=== PATIENT | male | born 1965 | race Caucasian/White ===

== ENCOUNTER 2019-03-14 09:49 | Inpatient (IN) ==
[2019-03-14] MEDS ORDERED: methylPREDNISolone 125 MG/2 ML VIAL IVP ONE (09:55)
[2019-03-14] MEDS ORDERED: Ipratropium/Albuterol Neb 3 ML IH ONE (09:55)
--- NOTE | 2019-03-14 09:55 | Emergency Department Note ---
Disposition Clinical Impression: Lung cancer, Respiratory distress, Hypercalcemia, Malignant pleural effusion Disposition: Admitted As Inpatient Condition: Fair General Adult HPI - General Stated complaint: DIBam Time Seen by Provider: 03/14/19 09:50 - Related Data Home Medications Medication Instructions Recorded Confirmed Pravastatin Sodium [Pravachol] 40 mg PO DAILY 12/19/16 03/14/19 Ranitidine HCl [Heartburn Relief] 150 mg PO BID 12/19/16 03/14/19 OxyCODONE Immed Rel [Roxicodone 30 30 mg PO Q2H PRN 11/21/17 03/14/19 MG] Losartan Potassium [Cozaar] 50 mg PO QPM 12/11/17 03/14/19 Lactobacillus Acidophilus 1 tab PO TID 02/26/19 03/14/19 [Acidophilus] Morphine Sulfate [Arymo ER] 30 mg PO Q12H 02/26/19 03/14/19 predniSONE [PredniSONE] 10 mg PO DAILY 02/26/19 03/14/19 Previous Rx's Medication Instructions Recorded Budesonide/Formoterol 80/4.5 1 puff IH BID #1 hfa.aer.ad 12/12/18 [Symbicort 80/4.5] Dronabinol [Marinol] 10 mg PO BID 30 Days #60 capsule 01/30/19 Ipratropium/Albuterol Neb [Duoneb] 3 ml IH Q4HR PRN #42 vial.neb 02/20/19 Albuterol Sulfate [Ventolin Hfa] 2 puff IH Q6H PRN #1 aerosol 03/03/19 Allergies Allergy/AdvReac Type Severity Reaction Status Date / Time No Known Allergies Allergy Verified 03/14/19 10:56 Past Medical History - Past Medical History Medical history: Reports: cancer, GERD, hyperlipidemia, hypertension Surgical history: Reports: no surgical history Psychiatric history: Reports: no psych history - Social History Smoking Status: Former smoker Smokeless Tobacco Status: No Alcohol use: Reports: heavy Drug use: Reports: none Course Vital Signs Temperature 97.3 F L 03/14/19 09:57 Pulse Rate 138 03/14/19 09:57 Respiratory Rate 32 03/14/19 09:57 Blood Pressure 146/108 03/14/19 09:57 O2 Sat by Pulse Oximetry 98 03/14/19 09:57 Temperature 97.3 F L 03/14/19 18:50 Pulse Rate 107 03/14/19 18:50 Respiratory Rate 16 03/14/19 18:50 Blood Pressure 107/63 03/14/19 18:50 O2 Sat by Pulse Oximetry 98 03/14/19 18:50 Oxygen Delivery Oxygen Delivery Bipap Medical Decision Making - Lab Data Result diagrams: 03/14/19 10:15 03/14/19 10:15 Lab Results 03/14/19 03/14/19 03/14/19 Range/Units 10:15 10:15 10:15 WBC 11.6 H (4.3-11.1) K/mcL RBC 4.59 (4.19-5.50) M/mcL Hgb 12.8 L (12.9-16.9) g/dL Hct 41.0 (37.5-50.1) % MCV 89.3 (83.0-100.0) fL MCH 27.9 L (28.0-33.3) pg MCHC 31.2 L (31.6-35.5) g/dL RDW 13.5 (11.5-14.5) % Plt Count 349 (140-400) K/mcL MPV 9.8 (9.4-12.4) fL Immature Gran % 0.7 (0-4) % Seg Neutrophils % 84.4 % Lymphocytes % 4.1 % Monocytes % 10.4 % Eosinophils % 0.1 % Basophils % 0.3 % Neutrophils # 9.8 H (1.6-8.9) K/mcL Lymphocytes # 0.5 L (0.6-4.6) K/mcL Monocytes # 1.2 (0.0-1.3) K/mcL Eosinophils # 0.0 (0.0-0.6) K/mcL Basophils # 0.0 (0.0-0.2) K/mcL PT 15.8 H (9.4-12.1) Seconds INR 1.4 VBG pH (7.32-7.42) pH Units VBG pCO2 (41-51) mmHg VBG pO2 (25-50) mmHg VBG HCO3 (21-27) mEq/L Sodium 138 (136-145) mEq/L Potassium 4.4 (3.5-5.1) mEq/L Chloride 90 L (98-107) mEq/L Carbon Dioxide 37 H (23-29) mEq/L BUN 18 (6-20) mg/dL Creatinine 0.88 (0.70-1.30) mg/dL Est GFR ( Amer) > 60 (> 60) Est GFR (Non-Af Amer) > 60 (> 60) BUN/Creatinine Ratio 20 (6-26) Glucose 114 H (70-105) mg/dL Calculated Osmolality 289 (280-300) Lactic Acid (0.5-2.2) mmol/L Calcium 16.6 H* (8.6-10.3) mg/dL Total Bilirubin 0.5 (0.3-1.0) mg/dL Direct Bilirubin 0.0 (0.0-0.2) mg/dL Indirect Bilirubin 0.5 (0.0-1.2) mg/dL AST 15 (13-39) Units/L ALT 11 (7-52) Units/L Alkaline Phosphatase 244 H (34-104) Units/L Lactate Dehydrogenase 125 L (140-271) Units/L Troponin I 0.03 (< 0.04) ng/mL B-Natriuretic Peptide (Less than 100) pg/mL Serum Total Protein 8.2 (6.4-8.9) g/dL Albumin 4.0 (3.5-5.7) g/dL Globulin 4.2 H (2.4-3.5) g/dL Albumin/Globulin Ratio 1.0 L (1.1-2.2) Person Notif of Crit 03/14/19 03/14/19 03/14/19 Range/Units 10:15 10:15 10:32 WBC (4.3-11.1) K/mcL RBC (4.19-5.50) M/mcL Hgb (12.9-16.9) g/dL Hct (37.5-50.1) % MCV (83.0-100.0) fL MCH (28.0-33.3) pg MCHC (31.6-35.5) g/dL RDW (11.5-14.5) % Plt Count (140-400) K/mcL MPV (9.4-12.4) fL Immature Gran % (0-4) % Seg Neutrophils % % Lymphocytes % % Monocytes % % Eosinophils % % Basophils % % Neutrophils # (1.6-8.9) K/mcL Lymphocytes # (0.6-4.6) K/mcL Monocytes # (0.0-1.3) K/mcL Eosinophils # (0.0-0.6) K/mcL Basophils # (0.0-0.2) K/mcL PT (9.4-12.1) Seconds INR VBG pH 7.34 (7.32-7.42) pH Units VBG pCO2 72 H* (41-51) mmHg VBG pO2 32 (25-50) mmHg VBG HCO3 39 H (21-27) mEq/L Sodium (136-145) mEq/L Potassium (3.5-5.1) mEq/L Chloride (98-107) mEq/L Carbon Dioxide (23-29) mEq/L BUN (6-20) mg/dL Creatinine (0.70-1.30) mg/dL Est GFR ( Amer) (> 60) Est GFR (Non-Af Amer) (> 60) BUN/Creatinine Ratio (6-26) Glucose (70-105) mg/dL Calculated Osmolality (280-300) Lactic Acid 1.8 (0.5-2.2) mmol/L Calcium (8.6-10.3) mg/dL Total Bilirubin (0.3-1.0) mg/dL Direct Bilirubin (0.0-0.2) mg/dL Indirect Bilirubin (0.0-1.2) mg/dL AST (13-39) Units/L ALT (7-52) Units/L Alkaline Phosphatase (34-104) Units/L Lactate Dehydrogenase (140-271) Units/L Troponin I (< 0.04) ng/mL B-Natriuretic Peptide 127 H (Less than 100) pg/mL Serum Total Protein (6.4-8.9) g/dL Albumin (3.5-5.7) g/dL Globulin (2.4-3.5) g/dL Albumin/Globulin Ratio (1.1-2.2) Person Notif of Xavi ORTIZ SAMEERA 03/14/19 Range/Units 11:59 WBC (4.3-11.1) K/mcL RBC (4.19-5.50) M/mcL Hgb (12.9-16.9) g/dL Hct (37.5-50.1) % MCV (83.0-100.0) fL MCH (28.0-33.3) pg MCHC (31.6-35.5) g/dL RDW (11.5-14.5) % Plt Count (140-400) K/mcL MPV (9.4-12.4) fL Immature Gran % (0-4) % Seg Neutrophils % % Lymphocytes % % Monocytes % % Eosinophils % % Basophils % % Neutrophils # (1.6-8.9) K/mcL Lymphocytes # (0.6-4.6) K/mcL Monocytes # (0.0-1.3) K/mcL Eosinophils # (0.0-0.6) K/mcL Basophils # (0.0-0.2) K/mcL PT (9.4-12.1) Seconds INR VBG pH (7.32-7.42) pH Units VBG pCO2 (41-51) mmHg VBG pO2 (25-50) mmHg VBG HCO3 (21-27) mEq/L Sodium (136-145) mEq/L Potassium (3.5-5.1) mEq/L Chloride (98-107) mEq/L Carbon Dioxide (23-29) mEq/L BUN (6-20) mg/dL Creatinine (0.70-1.30) mg/dL Est GFR ( Amer) (> 60) Est GFR (Non-Af Amer) (> 60) BUN/Creatinine Ratio (6-26) Glucose (70-105) mg/dL Calculated Osmolality (280-300) Lactic Acid 1.3 (0.5-2.2) mmol/L Calcium (8.6-10.3) mg/dL Total Bilirubin (0.3-1.0) mg/dL Direct Bilirubin (0.0-0.2) mg/dL Indirect Bilirubin (0.0-1.2) mg/dL AST (13-39) Units/L ALT (7-52) Units/L Alkaline Phosphatase (34-104) Units/L Lactate Dehydrogenase (140-271) Units/L Troponin I (< 0.04) ng/mL B-Natriuretic Peptide (Less than 100) pg/mL Serum Total Protein (6.4-8.9) g/dL Albumin (3.5-5.7) g/dL Globulin (2.4-3.5) g/dL Albumin/Globulin Ratio (1.1-2.2) Person Notif of Crit Critical Care Time Critical Care Time: Yes Total Critical Care Time: 30 Attestation: The high probability of a clinically significant, sudden or life threatening deterioration of the [] system(s) required my full and direct attention, intervention and personal management. The aggregate critical care time was [] minutes. This time is in addition to time spent performing reported procedures but includes the following: [] Data Review and interpretation [] Patient assessment and monitoring of vital signs [] Documentation [] Medication orders and management Attestation Statement - Attestation Attestation: I reviewed the residents documentation and agree with the residents assessment and plan of care. I have personally had face to face time with the patient. (Brief History, Brief Exam, and MDM) I personally supervised and was present for the gregorio/critical portions of the following procedures completed by the resident: (add procedures performed here). [id number] time provided Patient arrives by EMS from home complaining of dyspnea. He has a history of active lung cancer. It is uncertain whether he is receiving chemotherapy. Patient has coarse audible breath sounds on exam with evidence of increased work of breathing. I attest to supervising the resident physician interpretation of the ECG
--- NOTE | 2019-03-14 10:00 | Emergency Department Note ---
Disposition Clinical Impression: Respiratory distress, Hypercalcemia, Malignant pleural effusion Lung cancer Qualifiers: Laterality: unspecified laterality Lung location: unspecified part of lung Qualified Code(s): C34.90 - Malignant neoplasm of unspecified part of unspecified bronchus or lung Disposition: Admitted As Inpatient Condition: Fair Referrals: Marilynn Carrillo MD [Primary Care Provider] - Forms: ED Satisfaction Letter General Adult HPI - General Chief complaint: ED Shortness of Breath/Dyspnea Stated complaint: DIBam Time Seen by Provider: 03/14/19 09:50 Source: patient, EMS Mode of arrival: EMS Limitations: no limitations Nursing Notes Reviewed: Yes Vital Signs Reviewed: Yes - History of Present Illness HPI Narrative: 53-year-old male with history of hypertension hyperlipidemia with metastatic non-small cell lung cancer currently undergoing chemotherapy and radiation presents for evaluation for respiratory distress. Patient unable to provide an accurate history given his current medical condition but does state that it has been going on for the past 3-4 days. Noting chest pain as well as cough. Denies any fevers. Denying any abdominal pain. EMS states that the patient presented from home. Patient is 4 L oxygen dependent at baseline. Patient also states he has a history of heart failure. - Related Data Home Medications Medication Instructions Recorded Confirmed Pravastatin Sodium [Pravachol] 40 mg PO DAILY 12/19/16 03/14/19 Ranitidine HCl [Heartburn Relief] 150 mg PO BID 12/19/16 03/14/19 OxyCODONE Immed Rel [Roxicodone 30 30 mg PO Q2H PRN 11/21/17 03/14/19 MG] Losartan Potassium [Cozaar] 50 mg PO QPM 12/11/17 03/14/19 Lactobacillus Acidophilus 1 tab PO TID 02/26/19 03/14/19 [Acidophilus] Morphine Sulfate [Arymo ER] 30 mg PO Q12H 02/26/19 03/14/19 predniSONE [PredniSONE] 10 mg PO DAILY 02/26/19 03/14/19 Previous Rx's Medication Instructions Recorded Budesonide/Formoterol 80/4.5 1 puff IH BID #1 hfa.aer.ad 12/12/18 [Symbicort 80/4.5] Dronabinol [Marinol] 10 mg PO BID 30 Days #60 capsule 01/30/19 Ipratropium/Albuterol Neb [Duoneb] 3 ml IH Q4HR PRN #42 vial.neb 02/20/19 Albuterol Sulfate [Ventolin Hfa] 2 puff IH Q6H PRN #1 aerosol 03/03/19 Allergies Allergy/AdvReac Type Severity Reaction Status Date / Time No Known Allergies Allergy Verified 03/14/19 10:56 All systems ED: reviewed and negative except as stated. Constitutional: Denies: fever Cardiovascular: Reports: chest pain Respiratory: Reports: cough, dyspnea Gastrointestinal: Denies: nausea, vomiting Past Medical History - Past Medical History Source: patient Medical history: Reports: cancer, GERD, hyperlipidemia, hypertension Surgical history: Reports: no surgical history Psychiatric history: Reports: no psych history - Social History Smoking Status: Former smoker Smokeless Tobacco Status: No Alcohol use: Reports: heavy Drug use: Reports: none Physical Exam - General Limitations: no limitations General appearance: alert, in distress - Head Head exam: atraumatic, normocephalic, normal inspection - Eye Eye exam: Present: normal appearance, PERRL, EOMI - ENT ENT exam: normal exam, mucous membranes moist - Neck Neck exam: Present: normal inspection - Chest Chest inspection: Present: normal inspection, symmetric chest wall rise, other (right upper chest port without surrounding erythema or crepitus.) - Respiratory Respiratory exam: Present: respiratory distress, accessory muscle use (Sitting up in bed), prolonged expiratory phase, other (Audible rhonchorous breath sounds in all lung lizarraga) - Cardiovascular Cardiovascular exam: Present: regular rate, normal rhythm. Absent: normal heart sounds - Abdominal Exam Abdominal exam: Present: soft, Non-Tender - Extremities Exam Extremities exam: Present: normal inspection. Absent: pedal edema - Back Exam Back exam: Present: normal inspection - Neurological Exam Neurological exam: Present: alert, oriented X3, CN II-XII intact - Skin Skin exam: Present: warm, dry, intact, normal color. Absent: rash Course Course Narrative: Patient presented for concerns of respiratory distress. Given the patient's current acute work of breathing the patient has difficulty providing much of a history. Patient is conversational dyspneic. Medially plate BiPAP. Patient also has rhonchorous breath sounds throughout. Review the record showed the patient is undergoing chemoradiation for metastatic non-small cell lung cancer. Patient will be continue respiratory support monitoring. Cultures lactate troponin EKG chest x-ray anticipated admission. - Reevaluation(s) Reevaluation #1: Patient is on 12/6 and appears to be tolerating BiPAP better. Time: 10:23 Reevaluation #2: Patient will be covered with broad-spectrum antibiotics given his increased work of breathing. Did increase the patient's BiPAP to 14/6 to increase his tidal volume. Patient's continuing to rest well on the BiPAP. Time: 10:46 Reevaluation #3: Patient does have evidence of hypercalcemia likely secondary to his bony metastatic disease. She will be treated with fluids as well as Lasix. Time: 11:20 - Consultations Consultation #1: IR is aware of thoracentesis. Time: 10:14 Consultation #2: Did speak with hematology and oncology regarding the elevated calcium. Recommends Zometa. Time: 11:51 Vital Signs Temperature 97.3 F L 03/14/19 09:57 Pulse Rate 138 03/14/19 09:57 Respiratory Rate 32 03/14/19 09:57 Blood Pressure 146/108 03/14/19 09:57 O2 Sat by Pulse Oximetry 98 03/14/19 09:57 Temperature 97.3 F L 03/14/19 09:57 Pulse Rate 116 03/14/19 12:06 Respiratory Rate 20 03/14/19 12:06 Blood Pressure 112/86 03/14/19 12:06 O2 Sat by Pulse Oximetry 97 03/14/19 12:06 Oxygen Delivery Oxygen Delivery Bipap Medical Decision Making - [facility] Narrative Medical decision making narrative: Patient presented for evaluation of respiratory distress. Patient does have known metastatic non-small cell lung cancer. Patient history provided mostly via chart review. Given the patient's increased work of breathing BiPAP was immediately placed. Patient responded well with BiPAP. Patient does have evidence of hypoxic and hypercarbic respiratory distress. Patient chest x-ray reveals a presumed malignant pleural effusion. Contact IR regarding thorace ntesis. Patient has had have thoracentesis in the past. Patient's labs showed elevated white count normal lactate. Given the evidence of respiratory distress the patient was covered with broad-spectrum antibiotics. Patient is also immunocompromised with history of chemoradiation. Cultures obtained. Patient also has a lentoid abnormalities which includes a hypercalcemia. Patient elevated calcium likely secondary to the metastatic bony disease. Patient was treated with fluids and diuretics. Patient will be admitted to the hospitalist service for continued evaluation and monitoring. Did speak with hematology oncology recommend bisphosphonates in those were ordered in the ED. Patient has been stable in the ED and is appropriate for the step down. - Lab Data Lab results reviewed: Yes I reviewed the patient's lab results. Result diagrams: 03/14/19 10:15 03/14/19 10:15 Lab Results 03/14/19 03/14/19 03/14/19 Range/Units 10:15 10:15 10:15 WBC 11.6 H (4.3-11.1) K/mcL RBC 4.59 (4.19-5.50) M/mcL Hgb 12.8 L (12.9-16.9) g/dL Hct 41.0 (37.5-50.1) % MCV 89.3 (83.0-100.0) fL MCH 27.9 L (28.0-33.3) pg MCHC 31.2 L (31.6-35.5) g/dL RDW 13.5 (11.5-14.5) % Plt Count 349 (140-400) K/mcL MPV 9.8 (9.4-12.4) fL Immature Gran % 0.7 (0-4) % Seg Neutrophils % 84.4 % Lymphocytes % 4.1 % Monocytes % 10.4 % Eosinophils % 0.1 % Basophils % 0.3 % Neutrophils # 9.8 H (1.6-8.9) K/mcL Lymphocytes # 0.5 L (0.6-4.6) K/mcL Monocytes # 1.2 (0.0-1.3) K/mcL Eosinophils # 0.0 (0.0-0.6) K/mcL Basophils # 0.0 (0.0-0.2) K/mcL PT 15.8 H (9.4-12.1) Seconds INR 1.4 VBG pH (7.32-7.42) pH Units VBG pCO2 (41-51) mmHg VBG pO2 (25-50) mmHg VBG HCO3 (21-27) mEq/L Sodium 138 (136-145) mEq/L Potassium 4.4 (3.5-5.1) mEq/L Chloride 90 L (98-107) mEq/L Carbon Dioxide 37 H (23-29) mEq/L BUN 18 (6-20) mg/dL Creatinine 0.88 (0.70-1.30) mg/dL Est GFR ( Amer) > 60 (> 60) Est GFR (Non-Af Amer) > 60 (> 60) BUN/Creatinine Ratio 20 (6-26) Glucose 114 H (70-105) mg/dL Calculated Osmolality 289 (280-300) Lactic Acid (0.5-2.2) mmol/L Calcium 16.6 H* (8.6-10.3) mg/dL Total Bilirubin 0.5 (0.3-1.0) mg/dL Direct Bilirubin 0.0 (0.0-0.2) mg/dL Indirect Bilirubin 0.5 (0.0-1.2) mg/dL AST 15 (13-39) Units/L ALT 11 (7-52) Units/L Alkaline Phosphatase 244 H (34-104) Units/L Lactate Dehydrogenase 125 L (140-271) Units/L Troponin I 0.03 (< 0.04) ng/mL B-Natriuretic Peptide (Less than 100) pg/mL Serum Total Protein 8.2 (6.4-8.9) g/dL Albumin 4.0 (3.5-5.7) g/dL Globulin 4.2 H (2.4-3.5) g/dL Albumin/Globulin Ratio 1.0 L (1.1-2.2) Person Notif of Crit 03/14/19 03/14/19 03/14/19 Range/Units 10:15 10:15 10:32 WBC (4.3-11.1) K/mcL RBC (4.19-5.50) M/mcL Hgb (12.9-16.9) g/dL Hct (37.5-50.1) % MCV (83.0-100.0) fL MCH (28.0-33.3) pg MCHC (31.6-35.5) g/dL RDW (11.5-14.5) % Plt Count (140-400) K/mcL MPV (9.4-12.4) fL Immature Gran % (0-4) % Seg Neutrophils % % Lymphocytes % % Monocytes % % Eosinophils % % Basophils % % Neutrophils # (1.6-8.9) K/mcL Lymphocytes # (0.6-4.6) K/mcL Monocytes # (0.0-1.3) K/mcL Eosinophils # (0.0-0.6) K/mcL Basophils # (0.0-0.2) K/mcL PT (9.4-12.1) Seconds INR VBG pH 7.34 (7.32-7.42) pH Units VBG pCO2 72 H* (41-51) mmHg VBG pO2 32 (25-50) mmHg VBG HCO3 39 H (21-27) mEq/L Sodium (136-145) mEq/L Potassium (3.5-5.1) mEq/L Chloride (98-107) mEq/L Carbon Dioxide (23-29) mEq/L BUN (6-20) mg/dL Creatinine (0.70-1.30) mg/dL Est GFR ( Amer) (> 60) Est GFR (Non-Af Amer) (> 60) BUN/Creatinine Ratio (6-26) Glucose (70-105) mg/dL Calculated Osmolality (280-300) Lactic Acid 1.8 (0.5-2.2) mmol/L Calcium (8.6-10.3) mg/dL Total Bilirubin (0.3-1.0) mg/dL Direct Bilirubin (0.0-0.2) mg/dL Indirect Bilirubin (0.0-1.2) mg/dL AST (13-39) Units/L ALT (7-52) Units/L Alkaline Phosphatase (34-104) Units/L Lactate Dehydrogenase (140-271) Units/L Troponin I (< 0.04) ng/mL B-Natriuretic Peptide 127 H (Less than 100) pg/mL Serum Total Protein (6.4-8.9) g/dL Albumin (3.5-5.7) g/dL Globulin (2.4-3.5) g/dL Albumin/Globulin Ratio (1.1-2.2) Person Notif of Xavi BRASHER 03/14/19 Range/Units 11:59 WBC (4.3-11.1) K/mcL RBC (4.19-5.50) M/mcL Hgb (12.9-16.9) g/dL Hct (37.5-50.1) % MCV (83.0-100.0) fL MCH (28.0-33.3) pg MCHC (31.6-35.5) g/dL RDW (11.5-14.5) % Plt Count (140-400) K/mcL MPV (9.4-12.4) fL Immature Gran % (0-4) % Seg Neutrophils % % Lymphocytes % % Monocytes % % Eosinophils % % Basophils % % Neutrophils # (1.6-8.9) K/mcL Lymphocytes # (0.6-4.6) K/mcL Monocytes # (0.0-1.3) K/mcL Eosinophils # (0.0-0.6) K/mcL Basophils # (0.0-0.2) K/mcL PT (9.4-12.1) Seconds INR VBG pH (7.32-7.42) pH Units VBG pCO2 (41-51) mmHg VBG pO2 (25-50) mmHg VBG HCO3 (21-27) mEq/L Sodium (136-145) mEq/L Potassium (3.5-5.1) mEq/L Chloride (98-107) mEq/L Carbon Dioxide (23-29) mEq/L BUN (6-20) mg/dL Creatinine (0.70-1.30) mg/dL Est GFR ( Amer) (> 60) Est GFR (Non-Af Amer) (> 60) BUN/Creatinine Ratio (6-26) Glucose (70-105) mg/dL Calculated Osmolality (280-300) Lactic Acid 1.3 (0.5-2.2) mmol/L Calcium (8.6-10.3) mg/dL Total Bilirubin (0.3-1.0) mg/dL Direct Bilirubin (0.0-0.2) mg/dL Indirect Bilirubin (0.0-1.2) mg/dL AST (13-39) Units/L ALT (7-52) Units/L Alkaline Phosphatase (34-104) Units/L Lactate Dehydrogenase (140-271) Units/L Troponin I (< 0.04) ng/mL B-Natriuretic Peptide (Less than 100) pg/mL Serum Total Protein (6.4-8.9) g/dL Albumin (3.5-5.7) g/dL Globulin (2.4-3.5) g/dL Albumin/Globulin Ratio (1.1-2.2) Person Notif of Crit - Radiology Data Radiology results reviewed: Yes I reviewed the patient's radiology results. Chest X-Ray 03/14/19 09:55 IMPRESSION: See findings above. D/ / Joel Miller / Joel Miller Interpreting Provider: Joel Miller - EKG Data EKG #1 EKG attestation: Yes I reviewed and interpreted this EKG. EKG shows normal: sinus rhythm Rate: normal Rhythm: NSR [place]/QRS: normal Q waves: v1 Interpretation: nonspecific ST-T wave changes EKG #2 EKG attestation: Yes I reviewed and interpreted this EKG. EKG shows normal: sinus rhythm Rate: normal Rhythm: NSR [place]/QRS: normal Interpretation: no acute changes, nonspecific ST-T wave changes Lesly - SMakiAChristian Situation: Demographics Background: Presenting Complaint Assessment: Vital Signs, Course and respsone to treatment, Patient/Family Expectation Recommendation: Barrier(s) to disposition, Recommendation based on pending studies, treatments, or consults S.B.Armin Report Given to: Hospitalist Lesly Repor Time: 12:41
[2019-03-14 10:39] LABS: Basophils % 0.3 %; Eosinophils % 0.1 %; Hemoglobin 12.8 g/dL (12.9-16.9); Immature Granulocytes % 0.7 % (0-4); Lymphocytes # 0.5 K/mcL (0.6-4.6); Lymphocytes % 4.1 %; Mean Corpuscular HGB Conc 31.2 g/dL (31.6-35.5); Mean Corpuscular Hemoglobin 27.9 pg (28.0-33.3); Mean Corpuscular Volume 89.3 fL (83.0-100.0); Mean Platelet Volume 9.8 fL (9.4-12.4); Monocytes # 1.2 K/mcL (0.0-1.3); Monocytes % 10.4 %; Neutrophils # 9.8 K/mcL (1.6-8.9); Platelet Count 349 K/mcL (140-400); Red Blood Count 4.59 M/mcL (4.19-5.50); Red Cell Distribution Width 13.5 % (11.5-14.5); Segmented Neutrophils % 84.4 %
[2019-03-14 10:44] LABS: VBG HCO3 39 mEq/L (21-27); VBG PCO2 72 mmHg (41-51); VBG PH 7.34 pH Units (7.32-7.42); VBG PO2 32 mmHg (25-50)
[2019-03-14 10:46] LABS: INR 1.4; Prothrombin Time 15.8 Seconds (9.4-12.1)
[2019-03-14] MEDS ORDERED: Piperacillin/Tazobactam 3.375 GM in Water for inj. (sterile) 20 ML 20 ML IVP ONE (10:46)
[2019-03-14 11:17] LABS: Alanine Aminotransferase 11 Units/L (7-52); Alkaline Phosphatase 244 Units/L (34-104); Aspartate Amino Transferase 15 Units/L (13-39); BUN/Creatinine Ratio 20 (6-26); Bilirubin,Indirect 0.5 mg/dL (0.0-1.2); Bilirubin,Total 0.5 mg/dL (0.3-1.0); Blood Urea Nitrogen 18 mg/dL (6-20); Calcium 16.6 mg/dL (8.6-10.3); Carbon Dioxide 37 mEq/L (23-29); Chloride 90 mEq/L (98-107); Globulin 4.2 g/dL (2.4-3.5); Glucose 114 mg/dL (70-105); Lactate Dehydrogenase 125 Units/L (140-271); Osmolality,Calculated 289 (280-300); Potassium 4.4 mEq/L (3.5-5.1); Sodium 138 mEq/L (136-145); Total Protein 8.2 g/dL (6.4-8.9); Troponin I 0.03 ng/mL (< 0.04); eGFR For Non-African Americans > 60 (> 60)
[2019-03-14] MEDS ORDERED: 0.9 % Sodium Chloride 1,000 ML IVC ONE ×2 (11:19→20:25)
[2019-03-14] MEDS ORDERED: Furosemide 40 MG/4 ML VIAL IVP ONE (11:19)
[2019-03-14] MEDS ORDERED: Furosemide 20 MG/2 ML VIAL IVP ONE (11:28)
[2019-03-14] MEDS ORDERED: Zoledronic Acid (Zometa) 4 MG in 0.9 % Sodium Chloride 100 ML IV ONE (12:08)
--- NOTE | 2019-03-14 13:24 | Internal Med History&Physical ---
<Carlin Celis - Last Filed: 03/14/19 16:29> Date of Encounter: 03/14/19 Time of Encounter: 13:20 Internal Medicine - H&P: HPI Chief complaint: SOB Admitted From: Emergency Dept History of present illness: Mr. Higgins is a 53 year old male with a past medical history of hypertension, HLD, COPD with continuous 4 L home oxygen dependence, and chemoradiation for non-small cell lung cancer who presented to the ED secondary to difficulty breathing for the past 3 days. Patient reports associated cough, anorexia, and anterior chest pain that is worse with chest wall palpation. Patient sees Dr. Jean at [facility] and completed Pembrolizumab 200 mg IV every 3 weeks from 12/17/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 This is consistent with further progression of disease. Bronchoscopy 02/26/[address] Whitmore showed atypical cells suspicious for malignancy in the right mainstem bronchus, bronchus intermedius and left mainstem bronchus. There is evidence of endobronchial recurrence. On 02/24/2019 patient had a right thoracentesis with 150 mL of fluid removed. He had a right upper chest port placed and was initially scheduled to start another cycle for chemo today. In the ED, labs revealed hypercalcemia 16.6, leukocytosis 11.6, VBG PCO2 72, lactic acid level 1.8 --> 1.3, and chest x-ray revealed complete opacification of the right lung. IR was consulted for a thoracentesis. Past Med Surg Social Fam HX - Past Medical History Medical history: cancer, GERD, hyperlipidemia, hypertension Additional medical history: back pain, lung CA Psychiatric history: no psych history - Past Surgical History Additional surgical history: Bronchoscopy 12/19/2016, 02/26/19 - Social History Smoking Status: Former smoker Smokeless Tobacco Status: No Alcohol use: heavy Drug use: marijuana - Family History Father Living Status: Age at : 66 Cause of : OR Hx Family Cardiac Disorders: Yes (CAD) Mother Living Status: Age at : 71 Hx Family Neurologic Disorders: Yes (Li Gehrig's disease) Brother Living Status: Age at : 55 Cause of : Lung cancer Hx Family Cancer: Yes (Lung) Internal Medicine - H&P: Meds Pravastatin Sodium [Pravachol] 40 mg PO DAILY 12/19/16 [History] Ranitidine HCl [Heartburn Relief] 150 mg PO BID 12/19/16 [History] OxyCODONE Immed Rel [Roxicodone 30 MG] 30 mg PO Q2H PRN 11/21/17 [History] Losartan Potassium [Cozaar] 50 mg PO QPM 12/11/17 [History] Budesonide/Formoterol 80/4.5 [Symbicort 80/4.5] 1 puff IH BID #1 hfa.aer.ad 12/12/18 [Rx] Dronabinol [Marinol] 10 mg PO BID 30 Days #60 capsule 01/30/19 [Rx] Ipratropium/Albuterol Neb [Duoneb] 3 ml IH Q4HR PRN #42 vial.neb 02/20/19 [Rx] Lactobacillus Acidophilus [Acidophilus] 1 tab PO TID 02/26/19 [History] Morphine Sulfate [Arymo ER] 30 mg PO Q12H 02/26/19 [History] predniSONE [PredniSONE] 10 mg PO DAILY 02/26/19 [History] Albuterol Sulfate [Ventolin Hfa] 2 puff IH Q6H PRN #1 aerosol 03/03/19 [Rx] Allergy/AdvReac Type Severity Reaction Status Date / Time No Known Allergies Allergy Verified 03/14/19 10:56 ROS unobtainable: other (BiPap) All Systems PM: A 10-system review of systems was performed and is negative for pertinent findings except as documented above in the HPI. - Constitutional Constitutional: anorexia, fatigue, weakness, no chills, no fever(s) - EENT Eyes: no blurry vision, no diplopia Nose, mouth and throat: no sinus pain, no sore throat - Cardiovascular Cardiovascular ROS IM: chest pain, dyspnea, palpitations, no edema, no orthopnea, no syncope - Respiratory Respiratory: cough, dyspnea, dyspnea on exertion, wheezing, chest congestion, pain with cough, no hemoptysis, no excessive phlegm production, no change in phlegm color - Gastrointestinal Gastrointestinal: no abdominal pain, no constipation, no diarrhea, no nausea, no vomiting - Genitourinary Genitourinary ROS male: no difficulty urinating, no urinary frequency, no urinary urgency - Musculoskeletal Musculoskeletal ROS IM: no numbness, no tingling - Integumentary Integumentary IM: no new lesions, no rash - Neurological Neurological ROS: weakness, no dizziness, no numbness, no tingling - Psychiatric Psychiatric: no anxiety, no depression - Endocrine Endocrine IM: no polydipsia, no polyphagia, no polyuria - Hematologic/Lymphatic Hematologic/Lymphatic: no easy bleeding, no easy bruising - Constitutional Vitals: Temp Pulse Resp BP Pulse Ox 97.3 F L 116 20 112/86 97 03/14/19 09:57 03/14/19 12:06 03/14/19 12:06 03/14/19 12:06 03/14/19 12:06 General appearance: Present: cooperative, mild distress, A&O X 3, pleasant, answers questions appropriately Exam: wearing bipap - Head Head exam: Present: atraumatic, normocephalic - Eye Eye exam: Present: EOMI, conjuntiva pink, sclera anicteric - ENT ENT exam: Present: mucous membranes dry, normal oropharynx - Neck Neck exam general surgery: Present: supple, trachea midline - Respiratory Respiratory exam: Present: accessory muscle use (mild), rales (R>L), respiratory distress (mild, wearing BiPap), rhonchi, wheezes. Absent: CTAB - Cardiovascular Cardiovascular exam: Present: RRR, +S1, +S2. Absent: diastolic murmur, gallop, rubs, systolic murmur - GI/Abdominal GI/Abdominal exam: Present: normal bowel sounds, soft, no peritoneal signs. Absent: distended, guarding, tenderness - Extremities Exam Extremities exam: Present: warm, radial pulses palpable and symmetrical. Absent: calf tenderness, cyanotic, pedal edema - Back Exam Back exam: Present: normal inspection. Absent: paraspinal tenderness, tenderness - Neurological Exam Neurological exam: Present: alert, CN II-XII intact, oriented X3, no focal deficits. Absent: facial droop, speech deficit - Psychiatric Psychiatric exam: Present: normal affect, normal mood - Skin Skin exam: Present: dry, erythema (erythematous macule over left shoulder) Internal Med - H&P Results - Labs CBC & Chem 7: 03/14/19 10:15 03/14/19 10:15 Labs: Short CBC 03/14/19 Range/Units 10:15 WBC 11.6 H (4.3-11.1) K/mcL Hgb 12.8 L (12.9-16.9) g/dL Hct 41.0 (37.5-50.1) % Plt Count 349 (140-400) K/mcL Neutrophils # 9.8 H (1.6-8.9) K/mcL BMP 03/14/19 10:15 Sodium 138 Potassium 4.4 Chloride 90 L Carbon Dioxide 37 H BUN 18 Creatinine 0.88 Glucose 114 H Calcium 16.6 H* Cardiac Enzymes 03/14/19 Range/Units 10:15 Troponin I 0.03 (< 0.04) ng/mL Liver Function 03/14/19 Range/Units 10:15 Total Bilirubin 0.5 (0.3-1.0) mg/dL Direct Bilirubin 0.0 (0.0-0.2) mg/dL AST 15 (13-39) Units/L ALT 11 (7-52) Units/L Alkaline Phosphatase 244 H (34-104) Units/L Albumin 4.0 (3.5-5.7) g/dL - ABG Interpretation ABG results: 03/14/19 10:32 VBG pH 7.34 VBG pCO2 72 H* VBG pO2 32 VBG HCO3 39 H - Pulse Oximetry Interpretation Digit-Finger O2 Sat by Pulse Oximetry: 97 (On BiPAP) Actions taken: none - EKG Data -: EKG Interpreted by Myself EKG shows normal: sinus rhythm Rate: tachycardia (Heart rate 121, PACs, no signs of ischemia) - EKG Data Prior EKG available for review: yes When compared to previous EKG: there is no significant change - Impressions ITS Impressions Chest X-Ray 03/14/19 09:55 IMPRESSION: Right internal jugular chest port with catheter tip at the cavoatrial junction. Essentially unchanged complete opacification of the right hemithorax secondary to known right central obstructing lesion with presumed right lung atelectasis as well as moderate sized pleural effusion. Increase in size of small possibly loculated left pleural effusion with left basilar atelectasis. No pneumothorax. More prominent lucent lesion in the distal left clavicle compatible with known osseous metastatic disease. D/ / Joel Miller / Joel Miller Interpreting Provider: Joel Miller - Assessment and Plan (1) Acute on chronic respiratory failure with hypoxia and hypercapnia Current Visit: Yes Status: Acute Assessment and plan: Patient presented in acute respiratory distress, he wears 4 L continuous supplemental oxygen at baseline. ABG revealed pH 7.34, PCO2 72 Patient was started on BiPAP therapy. Continue bronchodilators. Condition remains guarded. (2) HCAP (healthcare-associated pneumonia) Current Visit: Yes Status: Suspected Assessment and plan: Patient on immunosuppression presented with leukocytosis 11.6, hypoxia, cough, and cChest x-ray revealed complete opacification of the right lung and increase in size of small possibly loculated left pleural effusion with left basilar atelectasis. Blood cultures, sputum cultures, urine Legionella and strep pneumo antigens pending, MRSA nasal swab pending Continue broad-spectrum antibiotics (vanc, Zosyn, Levaquin). Thoracentesis pleural fluid analysis pending. De-escalate antibiotics based on culture results. (3) Acute exacerbation of chronic obstructive airways disease Current Visit: Yes Status: Acute Assessment and plan: Continue antibiotics, bronchodilators, and steroids. (4) Hypercalcemia Current Visit: Yes Status: Acute Assessment and plan: Ca 16.6 --> 14.4 Hypercalcemia due to malignancy, bone metastasis. IVF, Lasix IV and IV bisphosphonate were given in the ED. Continue aggressive IV fluids. Trend serial calcium levels q4h. Telemetry monitoring. (5) Non-small cell cancer of right lung Current Visit: Yes Status: Chronic Assessment and plan: Recurrent progressive metastatic non-small cell lung cancer. Patient has both squamous cell and adenocarcinoma in the past. Disease progressed on Pembrolizumab, which he had benefit for about 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 This is consistent with further progression of disease. Bronchoscopy 02/26/[address] Whitmore showed atypical cells suspicious for malignancy in the right mainstem bronchus, bronchus intermedius and left mainstem bronchus. There is evidence of endobronchial recurrence. 02/24/2019 right thoracentesis 150 mL of fluid removed. IR consulted for a repeat thoracentesis, pleural fluid analysis pending. Overall prognosis poor. Oncology following. Patient requests to remain full code at this time. (6) Opiate dependence Current Visit: Yes Status: Chronic Assessment and plan: Cancer pain control regimen: MS 15 mg bid and Oxycodone 30 mg q 3 h prn Qualifiers: Substance use status: uncomplicated Qualified Code(s): F11.20 - Opioid dependence, uncomplicated (7) Decreased appetite Current Visit: Yes Status: Chronic Assessment and plan: Patient is on Marinol to 10 mg twice a day (8) DVT prophylaxis Current Visit: Yes Status: Acute Assessment and plan: Heparin subcutaneous TID (9) Alcohol dependence Current Visit: No Status: Chronic Assessment and plan: Patient drinks around 15 beers per day and reports last alcohol intake 3 days ago. Supplement thiamine, folate, and multivitamins. Ativan ordered per [place] protocol. Continue closely monitor for signs of alcohol withdrawal. Qualifiers: Substance use status: uncomplicated Qualified Code(s): F10.20 - Alcohol dependence, uncomplicated - Time Spent With Patient Total time spent is greater than 50% in coordination of care (as documented) at patient's floor/unit and/or counseling patient: <Estephanie Martinez - Last Filed: 03/15/19 06:33> Date of Encounter: 03/14/19 Internal Medicine - H&P: HPI History of present illness: Mr. Higgins is a 53 year old male All Systems PM: A 10-system review of systems was performed and is negative for pertinent findings except as documented above in the HPI. - Constitutional Vitals: Temp Pulse Resp BP Pulse Ox 97.9 F 102 21 130/75 98 03/15/19 03:11 03/15/19 03:11 03/15/19 04:08 03/15/19 03:11 03/15/19 04:08 Internal Med - H&P Results - Labs CBC & Chem 7: 03/15/19 03:07 03/15/19 03:07 Labs: Short CBC 03/14/19 03/15/19 Range/Units 10:15 03:07 WBC 11.6 H 9.5 (4.3-11.1) K/mcL Hgb 12.8 L 9.0 L D (12.9-16.9) g/dL Hct 41.0 28.3 L (37.5-50.1) % Plt Count 349 252 (140-400) K/mcL Neutrophils # 9.8 H 8.4 (1.6-8.9) K/mcL BMP 03/14/19 03/14/19 03/14/19 10:15 15:30 19:14 Sodium 138 Potassium 4.4 Chloride 90 L Carbon Dioxide 37 H BUN 18 Creatinine 0.88 Glucose 114 H Calcium 16.6 H* 14.4 H* 13.5 H* 03/14/19 03/15/19 22:49 03:07 Sodium 139 Potassium 3.6 Chloride 100 Carbon Dioxide 34 H BUN 20 Creatinine 0.63 L Glucose 124 H Calcium 12.9 H 12.5 H Cardiac Enzymes 03/14/19 03/14/19 03/14/19 Range/Units 10:15 15:30 21:04 Troponin I 0.03 < 0.03 < 0.03 (< 0.04) ng/mL 03/15/19 Range/Units 03:07 Troponin I < 0.03 (< 0.04) ng/mL Liver Function 03/14/19 Range/Units 10:15 Total Bilirubin 0.5 (0.3-1.0) mg/dL Direct Bilirubin 0.0 (0.0-0.2) mg/dL AST 15 (13-39) Units/L ALT 11 (7-52) Units/L Alkaline Phosphatase 244 H (34-104) Units/L Albumin 4.0 (3.5-5.7) g/dL - ABG Interpretation ABG results: 03/14/19 10:32 VBG pH 7.34 VBG pCO2 72 H* VBG pO2 32 VBG HCO3 39 H - Impressions ITS Impressions Chest X-Ray 03/14/19 09:55 IMPRESSION: See findings above. D/ / Joel Miller / Joel Miller Interpreting Provider: Joel Miller Thoracentesis 03/14/19 12:05 IMPRESSION: Successful ultrasound guided thoracentesis. D/ / Carlin Alvarado MD / Carlin Alvarado MD Interpreting Provider: Carlin Alvarado MD - Assessment and Plan (1) Non-small cell cancer of right lung Current Visit: Yes Status: Chronic (2) Acute exacerbation of chronic obstructive airways disease Current Visit: Yes Status: Acute (3) HCAP (healthcare-associated pneumonia) Current Visit: Yes Status: Suspected (4) Hypercalcemia Current Visit: Yes Status: Acute (5) Acute on chronic respiratory failure with hypoxia and hypercapnia Current Visit: Yes Status: Acute (6) Decreased appetite Current Visit: Yes Status: Chronic (7) DVT prophylaxis Current Visit: Yes Status: Acute (8) Opiate dependence Current Visit: Yes Status: Chronic Qualifiers: Substance use status: uncomplicated Qualified Code(s): F11.20 - Opioid dependence, uncomplicated (9) Alcohol dependence Current Visit: No Status: Chronic Qualifiers: Substance use status: uncomplicated Qualified Code(s): F10.20 - Alcohol dependence, uncomplicated - Time Spent With Patient Total time spent is greater than 50% in coordination of care (as documented) at patient's floor/unit and/or counseling patient: - Attending Attestation I personally and independently interviewed and examined the patient, and I reviewed the patient's medical records. I am in agreement with the assessment and proposed treatment plan. I discussed my findings and recommendation with the patient and answer his questions. The patient's medical records were edited to accurately reflect this encounter.
[2019-03-14] MEDS ORDERED: Ondansetron 4 MG/2 ML VIAL IVP PRN (14:36)
[2019-03-14] MEDS ORDERED: Naloxone 0.4 MG/ML INJ IVP PRN (14:36)
[2019-03-14] MEDS ORDERED: Acetaminophen 325 MG TABLET PO PRN (14:36)
[2019-03-14] MEDS ORDERED: 0.9 % Sodium Chloride 1,000 ML IVC SCH ×2 (14:45→16:06)
[2019-03-14] MEDS ORDERED: Multivit/Ca/Min/Fe/FA 1 TAB TABLET PO SCH (15:15)
[2019-03-14] MEDS ORDERED: 0.9 % Sodium Chloride 1,000 ML ONE (15:55)
[2019-03-14] MEDS: Ipratropium/Albuterol Neb 3 ML IH SCH ×3 (15:56→23:39)
[2019-03-14 16:17] LABS: Magnesium 1.6 mg/dL (1.6-2.6); Phosphorous 2.9 mg/dL (2.7-4.5)
[2019-03-14] MEDS ORDERED: *HR* LORazepam 2 MG/ML VIAL IVP PRN ×3 (16:27)
[2019-03-14] MEDS: *HR* OxyCODONE Immed Rel 15 MG TABLET PO PRN ×2 (16:29→20:36)
[2019-03-14] MEDS: Levofloxacin 750 MG/150 ML 750 MG/150 ML BAG IVPB SCH (17:20)
[2019-03-14] MEDS: Folic Acid 1 MG TABLET PO SCH (17:21)
[2019-03-14] MEDS: Thiamine (B-1) 100 MG TABLET PO SCH (17:21)
[2019-03-14] MEDS: Piperacillin/Tazobactam 3.375 GM in 0.9 % Sodium Chloride Mini Bag 100 ML IVPB SCH (17:21)
[2019-03-14] MEDS: MethylPREDNISolone 40 MG/ML VIAL IVP SCH (17:21)
[2019-03-14] MEDS: *HR* Morphine Sulfate SR (12 HR) 30 MG TABLET.ER PO SCH (17:22)
[2019-03-14] MEDS: Vitamin B Complex/Vit C/Vit E 1 EACH TABLET PO SCH (17:22)
[2019-03-14] MEDS: *HR* Heparin 5,000 UNIT/ML VIAL SQ SCH (20:37)
[2019-03-14] MEDS: Budesonide/Formoterol 80/4.5 MDI IH SCH (20:51)
[2019-03-14 22:43] LABS: Appearance of Pleural Fl Cloudy (Clear)
[2019-03-15] MEDS: Piperacillin/Tazobactam 3.375 GM in 0.9 % Sodium Chloride Mini Bag 100 ML IVPB SCH ×3 (01:09→15:56)
[2019-03-15] MEDS: MethylPREDNISolone 40 MG/ML VIAL IVP SCH ×4 (01:11→21:48)
[2019-03-15] MEDS: *HR* OxyCODONE Immed Rel 15 MG TABLET PO PRN ×4 (01:12→22:57)
[2019-03-15] MEDS: Ipratropium/Albuterol Neb 3 ML IH SCH ×6 (04:08→23:50)
[2019-03-15 04:18] LABS: Hematocrit 28.3 % (37.5-50.1); Immature Granulocytes % 0.4 % (0-4); Lymphocytes # 0.4 K/mcL (0.6-4.6); Lymphocytes % 3.9 %; Mean Corpuscular HGB Conc 31.8 g/dL (31.6-35.5); Mean Corpuscular Volume 87.9 fL (83.0-100.0); Mean Platelet Volume 9.8 fL (9.4-12.4); Monocytes # 0.6 K/mcL (0.0-1.3); Monocytes % 6.7 %; Neutrophils # 8.4 K/mcL (1.6-8.9); Platelet Count 252 K/mcL (140-400); Red Blood Count 3.22 M/mcL (4.19-5.50); Red Cell Distribution Width 13.4 % (11.5-14.5)
[2019-03-15 04:37] LABS: BUN/Creatinine Ratio 32 (6-26); Blood Urea Nitrogen 20 mg/dL (6-20); Calcium 12.5 mg/dL (8.6-10.3); Carbon Dioxide 34 mEq/L (23-29); Chloride 100 mEq/L (98-107); Glucose 124 mg/dL (70-105); Osmolality,Calculated 292 (280-300); Potassium 3.6 mEq/L (3.5-5.1); Sodium 139 mEq/L (136-145); eGFR For Non-African Americans > 60 (> 60)
[2019-03-15] MEDS: *HR* Heparin 5,000 UNIT/ML VIAL SQ SCH ×3 (05:49→21:48)
[2019-03-15] MEDS: *HR* Morphine Sulfate SR (12 HR) 30 MG TABLET.ER PO SCH ×2 (05:49→17:26)
[2019-03-15] MEDS: Budesonide/Formoterol 80/4.5 MDI IH SCH ×2 (07:26→20:10)
[2019-03-15] MEDS: Vitamin B Complex/Vit C/Vit E 1 EACH TABLET PO SCH (08:16)
[2019-03-15] MEDS: Levofloxacin 750 MG/150 ML 750 MG/150 ML BAG IVPB SCH (08:16)
[2019-03-15] MEDS: Thiamine (B-1) 100 MG TABLET PO SCH (08:16)
[2019-03-15] MEDS: Folic Acid 1 MG TABLET PO SCH (08:16)
--- NOTE | 2019-03-15 10:26 | Pulmonology Consult Note ---
Date of Encounter: 03/15/19 Time of Encounter: 10:25 Assessment and Plan (1) Acute on chronic respiratory failure with hypoxia and hypercapnia Current Visit: Yes Status: Acute This is a combination of COPD exacerbation likely pneumonia and malignant pleu ral effusion along with metastatic lung cancer. I also suspect a contribution from hydrostatic pulmonary edema. She currently saturating well on nasal cannula O2 is still in mild to moderate labored breathing and would benefit from positive airway pressure at a lower setting then was given yesterday such as 10 over 4 to ease work of breathing and to help him sleep at night. Aggressive bronchopulmonary toileting including percussive therapy and is able to tolerate incentive spirometry. He would also benefit from bed to chair as tolerated to mitigate the effects have the VQ mismatch from atelectasis (2) Pneumonia Current Visit: No Status: Suspected Elevated white count on admission although patient is afebrile I suspect there is a component of infection he is on broad-spectrum antibiotics now recommend obtaining cultures and would also recommend getting a sputum culture if able and sending this for analysis if findings are unremarkable over the next day 4 hours can likely de-escalate to respiratory fluoroquinolone to complete a week of therapy Qualifiers: Pneumonia type: due to methicillin-resistant Staphylococcus aureus (MRSA) Laterality: unspecified laterality Lung location: unspecified part of lung Qualified Code(s): J15.212 - Pneumonia due to Methicillin resistant Staphylococcus aureus (3) Acute exacerbation of chronic obstructive airways disease Current Visit: Yes Status: Acute COPD exacerbation recommend IV steroids for now 60 mg Solu-Medrol twice a day can likely transition to oral regimen in the next 54-48 hours continue schedule bronchodilators and Symbicort 160/4.52 puffs twice daily (4) Lung cancer Current Visit: Yes Status: Acute Patient has advanced malignancy I reviewed his CT scan which was done recently as well as a bronchoscopy report from earlier this month which shows evidence of significant endobronchial tumor burden on for in fact there is a very limited to her aeration of the right lung because of this tumor does not appear to be amenable to debulking or stent placement at this time. I think there is limited role in repeat CT scan or bronchoscopy is being given findings likely reflect underlying disease progression. So suspect patient will have persistent opacification of the right hemithorax until there is some response from salvage chemotherapy if this is able to be started. Obviously patient's prognosis is ve ry poor given this aggressive recurrence oncology is following with the patient consider palliative care consultation would also need to address goals of care/code status I suspect during this hospitalization Qualifiers: Laterality: unspecified laterality Lung location: unspecified part of lung Qualified Code(s): C34.90 - Malignant neoplasm of unspecified part of unspecified bronchus or lung (5) Hypercalcemia Current Visit: Yes Status: Acute Management per primary team with aggressive fluid resuscitation with the couple this with the use of Lasix to prevent a significant hydrostatic pulmonary edema (6) Malignant pleural effusion Current Visit: Yes Status: Acute Could be a candidate for Pleurx catheter placement based upon of fluid reaccumulation we will evaluate this prior to discharge Thank you for this consultation Do not hesitate to call me with any questions or concerns Shola Tavarescaren [phone] History of Present Illness Consult date: 03/15/19 Requesting physician: Yoav Leon Reason for consult: abnormal CXR/CT Chief complaint: Difficulty in breathing History of present illness: This is a pleasant 53-year-old gentleman and long-time smoker approximately [id number] who unfortunately suffers from 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 He initially was He underwent concurrent chemoradiation in 2016 but unfortunately had a cancer recurrence and completed Pembrolizumab in December 2018. He was seen by his oncologist within the last week and unfortunately CT scan have been performed on 411 which showed interval progression of primary lung mass he had undergone bronchoscopy on 02/26 her [place] and there is evidence of endobronchial recurrence including lesion in the right mainstem bronchus intermedius and left mainstem and plan was to start palliative chemotherapy but patient had noted to have conversational dyspnea and chest x- ray notable for right-sided opacification He came to the emergency room y esterday because of respiratory failure and hypercalcemia from his oncologist's office and underwent IR guided thoracentesis which 650 mL of fluid in the emergency department was also treated with Zometa for malignant hypercalcemia that was noted yesterday. Pulmonary was consulted for further evaluation because the chest x-ray from today does not show any significant improvement from yesterday despite fluid removal with the thoracentesis. In speaking with the patient today he says that he still very short of breath but much improved from when he presented to the emergency room yesterday he feels as though he has to cough but has had a difficult time expectorating sputum denies any fevers or chills denies any hemoptysis. Past Med Surg Social Fam HX - Past Medical History Medical history: cancer, GERD, hyperlipidemia, hypertension Additional medical history: back pain, lung CA Psychiatric history: no psych history - Past Surgical History Surgical History: no surgical history Additional surgical history: Bronchoscopy 12/19/2016, 02/26/19; port placement; - Social History Smoking Status: Former smoker Smokeless Tobacco Status: No Alcohol use: heavy Drug use: marijuana - Family History Father Living Status: Age at : 66 Cause of : [place] Hx Family Cardiac Disorders: Yes (CAD) Mother Living Status: Age at : 71 Hx Family Neurologic Disorders: Yes (Li Gehrig's disease) Brother Living Status: Age at : 55 Cause of : Lung cancer Hx Family Cancer: Yes (Lung) Medications and Allergies Pravastatin Sodium [Pravachol] 40 mg PO DAILY 12/19/16 [History] Ranitidine HCl [Heartburn Relief] 150 mg PO BID 12/19/16 [History] OxyCODONE Immed Rel [Roxicodone 30 MG] 30 mg PO Q2H PRN 11/21/17 [History] Losartan Potassium [Cozaar] 50 mg PO QPM 12/11/17 [History] Budesonide/Formoterol 80/4.5 [Symbicort 80/4.5] 1 puff IH BID #1 hfa.aer.ad 12/12/18 [Rx] Dronabinol [Marinol] 10 mg PO BID 30 Days #60 capsule 01/30/19 [Rx] Ipratropium/Albuterol Neb [Duoneb] 3 ml IH Q4HR PRN #42 vial.neb 02/20/19 [Rx] Lactobacillus Acidophilus [Acidophilus] 1 tab PO TID 02/26/19 [History] Morphine Sulfate [Arymo ER] 30 mg PO Q12H 02/26/19 [History] predniSONE [PredniSONE] 10 mg PO DAILY 02/26/19 [History] Albuterol Sulfate [Ventolin Hfa] 2 puff IH Q6H PRN #1 aerosol 03/03/19 [Rx] Allergy/AdvReac Type Severity Reaction Status Date / Time No Known Allergies Allergy Verified 03/14/19 10:56 All Systems: The remainder of the systems were reviewed and are negative Physical Examination Vital Signs: Vital Signs, Last 4 Hours Temp Pulse Resp BP Pulse Ox 03/15/19 07:26 18 96 03/15/19 07:05 97.5 F L 105 17 114/73 91 General appearance: alert Eyes: nonicteric ENT: oropharynx dry Neck: supple Effort: mildly labored Auscultation: bilateral: other (Air entry bilaterally scattered some crackles noted in the left lung base he has air entry but diminished on the right side scattered rhonchi in both lung lizarraga upper lung lizarraga greater than lower) Cardiovascular: regular rate and rhythm Gastrointestinal: normoactive bowel sounds, soft, non-tender Integumentary: normal Extremities: no cyanosis, no edema, no clubbing Musculoskeletal: no deformities normal mental status, non-focal exam Results - Laboratory Findings CBC and BMP: 03/15/19 03:07 03/15/19 03:07 PT/INR, D-dimer PT 15.8 Seconds (9.4-12.1) H 03/14/19 10:15 Abnormal lab findings: Abnormal lab results WBC 11.6 K/mcL (4.3-11.1) H 03/14/19 10:15 RBC 3.22 M/mcL (4.19-5.50) L 03/15/19 03:07 Hgb 9.0 g/dL (12.9-16.9) L D 03/15/19 03:07 Hct 28.3 % (37.5-50.1) L 03/15/19 03:07 MCH 27.9 pg (28.0-33.3) L 03/14/19 10:15 MCHC 31.2 g/dL (31.6-35.5) L 03/14/19 10:15 9.8 K/mcL (1.6-8.9) H 03/14/19 10:15 0.4 K/mcL (0.6-4.6) L 03/15/19 03:07 PT 15.8 Seconds (9.4-12.1) H 03/14/19 10:15 VBG pCO2 72 mmHg (41-51) H* 03/14/19 10:32 VBG HCO3 39 mEq/L (21-27) H 03/14/19 10:32 Chloride 90 mEq/L (98-107) L 03/14/19 10:15 Carbon Dioxide 34 mEq/L (23-29) H 03/15/19 03:07 0.63 mg/dL (0.70-1.30) L 03/15/19 03:07 32 (6-26) H 03/15/19 03:07 Glucose 124 mg/dL (70-105) H 03/15/19 03:07 Calcium 12.5 mg/dL (8.6-10.3) H 03/15/19 03:07 244 Units/L (34-104) H 03/14/19 10:15 125 Units/L (140-271) L 03/14/19 10:15 B-Natriuretic Peptide 127 pg/mL (Less than 100) H 03/14/19 10:15 4.2 g/dL (2.4-3.5) H 03/14/19 10:15 1.0 (1.1-2.2) L 03/14/19 10:15 PTH Intact 6.0 pg/ml (10.0-65.0) L 03/14/19 10:25 Pleural Appearance Cloudy (Clear) A 03/14/19 Unknown - Microbiology Findings Microbiology Findings: Microbiology, Last 48 Hours 03/14/19 10:27 Gram Stain - Final Pleural Fluid Body Fluid Culture - Preliminary Culture is incubating. 03/14/19 10:38 Blood Culture - Preliminary Peripheral Venipuncture Culture is incubating and being continuously monitored for growth. Final report to follow. 03/14/19 10:34 Blood Culture - Preliminary Peripheral Venipuncture Culture is incubating and being continuously monitored for growth. Final report to follow. - Diagnostic Findings Chest x-ray: report reviewed, image reviewed CT scan - chest: report reviewed, image reviewed - Clinical Findings Intake & Output: Intake & Output 03/14/19 03/15/19 03/15/19 23:59 07:59 15:59 Intake Total 340 / 1715 2500 / 2770 270 / 2770 Output Total 0 / 0 Balance 340 / 1715 2500 / 2770 270 / 2770 Weight 79.8 kg Consult Discharge Plan - Plan Referrals: Marilynn Carrillo MD [Primary Care Provider] -
--- NOTE | 2019-03-15 10:29 | Internal Med Progress Note ---
Hospitalist Progress Note - Encounter Date of Encounter: 03/15/19 Time of Encounter: 10:28 - Subjective Interval History: I have seen and evaluated the patient at bedside. Patient reported improvement in the shortness of breath, report right sided chest pain with deep inspiration. denies nausea, vomiting or abdominal pain. - Exam Vitals: Temp Pulse Resp BP Pulse Ox 97.5 F L 105 18 114/73 96 03/15/19 07:05 03/15/19 07:05 03/15/19 07:26 03/15/19 07:05 03/15/19 07:26 Exam: Vitals: Reviewed. General: Alert and oriented x4. In mild distress due to chest discomfort and shortness of breath Skin: Normal color, no rash, no lesions. HEENT: EOM, pupils equal, round and reactive. Cardiovascular: RRR, normal S1 & S2, no rubs, murmurs or gallops. Lungs: Rales to auscultation b/l R>L, minimal scattered expiratory wheezes, no crackles. Abdomen: Soft, non-tender, no rigidity. Extremities: No deformity, no edema or tenderness, no joint swelling or clubbing. Neurological: Normal cognition and motor skills. Rest of the physical exam is non contributory - Assessment and Plan (1) Acute on chronic respiratory failure with hypoxia and hypercapnia Current Visit: Yes Status: Acute Assessment and Plan: chest X-ray Right internal jugular chest port with catheter tip at the cavoatrial junction. Essentially unchanged complete opacification of the right hemithorax secondary to known right central obstructing lesion with presumed right lung atelectasis as well as moderate sized pleural effusion. Increase in size of small possibly loculated left pleural effusion with left basilar atelectasis. No pneumothorax. Plan patient s/p thoracentesis with 650 mls of fluids removed will repeat chest x-ray Pulm consulted chest CT ordered chest PT, plus incentive spirometry bronchodilators Q4RT Guillermina on symbicort methyl-prednisolone 40mg/IV Q12HR sputum culture and urine for atypical organisms ordered continue empiric IV antibiotics for HCAP, will narrow coverage pending CT chest and sputum report continue O2 by nasal cannula, titrate for O2 sat >92% pleural fluids culture: pending (2) Non-small cell cancer of right lung Current Visit: Yes Status: Chronic Assessment and Plan: CT chest without contrast 02/06/2019 revealed interval progression of the primary right lung mass, with progressive metastatic disease, now identified within the skeletal structures and within the upper abdomen with bubbles of gas noted within the upper aspect of the pleural collection, 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 This is consistent with further progression of disease. Bronchoscopy 02/26/[address] Whitmore showed atypical cells suspicious for malignancy in the right mainstem bronchus, bronchus intermedius and left mainstem bronchus. Plan Hem&Onc has been consulted for continuity of care, recommendations appreciated (3) Acute exacerbation of chronic obstructive airways disease Current Visit: Yes Status: Acute Assessment and Plan: plan of care as per problem #1 (4) HCAP (healthcare-associated pneumonia) Current Visit: Yes Status: Suspected Assessment and Plan: patient on broad spectrum IV antibiotics. chest CT ordered for better evaluation of lung parenchyma (5) Hypercalcemia Current Visit: Yes Status: Acute Assessment and Plan: Possible hypercalcemia of malignancy. improving with IV fluids. patient has received 4 litters of fluids. will hold IV fluids. encourage oral fluids intake patient received 1 dose of zolendronic acid Hem&Onc consulted (6) Decreased appetite Current Visit: Yes Status: Chronic (7) Alcohol dependence Current Visit: No Status: Chronic Assessment and Plan: on CIWA protocol. no signs of alcohol withdrawal (8) Opiate dependence Current Visit: Yes Status: Chronic DVT Prophylaxis: on Heparin subq - Summary of Assessment and Plan Summary of Assessment and Plan: Patient to remain in the hospital due to weight out of the right lung possible collapse versus pneumonia versus progression of lung cancer. On broad-spectrum IV antibiotics. - Time Spent with Patient Total time spent is greater than 50% in coordination of care (as documented) at patient's floor/unit and/or counseling patient: Greater than 35 minutes (40) Plan of Care Discussed with: patient (his and the nurse.) Internal Medicine: Result - Labs CBC & Chem 7: 03/15/19 03:07 03/15/19 03:07 Labs: Short CBC 03/14/19 03/15/19 Range/Units 10:15 03:07 WBC 11.6 H 9.5 (4.3-11.1) K/mcL Hgb 12.8 L 9.0 L D (12.9-16.9) g/dL Hct 41.0 28.3 L (37.5-50.1) % Plt Count 349 252 (140-400) K/mcL Neutrophils # 9.8 H 8.4 (1.6-8.9) K/mcL BMP 03/14/19 03/14/19 03/14/19 10:15 15:30 19:14 Sodium 138 Potassium 4.4 Chloride 90 L Carbon Dioxide 37 H BUN 18 Creatinine 0.88 Glucose 114 H Calcium 16.6 H* 14.4 H* 13.5 H* 03/14/19 03/15/19 22:49 03:07 Sodium 139 Potassium 3.6 Chloride 100 Carbon Dioxide 34 H BUN 20 Creatinine 0.63 L Glucose 124 H Calcium 12.9 H 12.5 H Cardiac Enzymes 03/14/19 03/14/19 03/14/19 Range/Units 10:15 15:30 21:04 Troponin I 0.03 < 0.03 < 0.03 (< 0.04) ng/mL 03/15/19 Range/Units 03:07 Troponin I < 0.03 (< 0.04) ng/mL Liver Function 03/14/19 Range/Units 10:15 Total Bilirubin 0.5 (0.3-1.0) mg/dL Direct Bilirubin 0.0 (0.0-0.2) mg/dL AST 15 (13-39) Units/L ALT 11 (7-52) Units/L Alkaline Phosphatase 244 H (34-104) Units/L Albumin 4.0 (3.5-5.7) g/dL - ABG Interpretation ABG results: PT/INR, D-dimer PT 15.8 Seconds (9.4-12.1) H 03/14/19 10:15 - Impressions Impressions Chest X-Ray 03/14/19 09:55 IMPRESSION: See findings above. D/ / Joel Miller / Joel Miller Interpreting Provider: Joel Miller Thoracentesis 03/14/19 12:05 IMPRESSION: Successful ultrasound guided thoracentesis. D/ / Carlin Alvarado MD / Carlin Alvarado MD Interpreting Provider: Carlin Alvarado MD Chest X-Ray 03/15/19 07:37 IMPRESSION: Stable appearance of the chest over the past 24 hours. No pneumothorax or chest x-ray evidence of significant change of pleural fluid after thoracentesis. D/ / Pablo Vickers MD / Pablo Vickers MD Interpreting Provider: Pablo Vickers MD Consult Discharge Plan - Plan Referrals: Marilynn Carrillo MD [Primary Care Provider] - (7) Alcohol dependence Qualifiers: Substance use status: uncomplicated Qualified Code(s): F10.20 - Alcohol dep endence, uncomplicated (8) Opiate dependence Qualifiers: Substance use status: uncomplicated Qualified Code(s): F11.20 - Opioid dependence, uncomplicated
--- NOTE | 2019-03-15 19:29 | Electrocardiograph Report ---
[facility] Test Date: 2019-03-14 Pat Name: Kristopher Higgins Department: EXAM21 Room: 2A14 Gender: M Collar Fuser: : [id number] Requested By: Keith Weir Order Number: [id number] Reading MD: Jose Juan Rascon Measurements Intervals [place] Rate: 121 P: 56 TN: 153 QRS: 49 QRSD: 98 T: 30 QT: 286 QTc: 406 Interpretive Statements Sinus tachycardia Multiple premature complexes, vent & supraven Electronically Signed On 03-15-2019 19:28:10 EDT by Jose Juan Rascon
[2019-03-15] MEDS ORDERED: Benzonatate 100 MG CAPSULE PO PRN (22:03)
[2019-03-16] MEDS: Piperacillin/Tazobactam 3.375 GM in 0.9 % Sodium Chloride Mini Bag 100 ML IVPB SCH ×2 (00:31→07:47)
[2019-03-16] MEDS: *HR* OxyCODONE Immed Rel 15 MG TABLET PO PRN ×8 (02:32→22:15)
[2019-03-16] MEDS: Ipratropium/Albuterol Neb 3 ML IH SCH ×5 (03:56→19:57)
[2019-03-16] MEDS: *HR* Heparin 5,000 UNIT/ML VIAL SQ SCH ×3 (06:05→22:15)
[2019-03-16] MEDS: *HR* Morphine Sulfate SR (12 HR) 30 MG TABLET.ER PO SCH ×2 (06:05→17:05)
--- NOTE | 2019-03-16 06:40 | Pulmonology Progress Note ---
Date of Encounter: 03/16/19 Time of Encounter: 06:40 Assessment and Plan (1) Acute on chronic respiratory failure with hypoxia and hypercapnia Current Visit: Yes Status: Acute Suspected secondary to pneumonia and COPD exacerbation with advanced underlying lung malignancy We will focus on bronchopulmonary hygiene including percussor therapy will add flutter valve and also acetylcysteine a regimen I suspect mucus plugging is a large factor in his dyspnea unfortunately would anticipate this will be a recurrent problem given the narrowing on bronchoscopy. I did ahead and keep the patient nothing by mouth at midnight could consider bronchoscopy if no improvement with conservative measures (2) Pneumonia Current Visit: No Status: Suspected He is on Levaquin cultures negative continue to treat likely need 5-7 days of treatment based upon clinical course Qualifiers: Pneumonia type: due to methicillin-resistant Staphylococcus aureus (MRSA) Laterality: unspecified laterality Lung location: unspecified part of lung Qualified Code(s): J15.212 - Pneumonia due to Methicillin resistant Staphylococcus aureus (3) Acute exacerbation of chronic obstructive airways disease Current Visit: Yes Status: Acute Continue bronchodilators and IV steroids continue Symbicort (4) Lung cancer Current Visit: Yes Status: Acute Recurrence on salvage therapy will need to have oncology consultation consider palliative care and goals of care discussion Qualifiers: Laterality: unspecified laterality Lung location: unspecified part of lung Qualified Code(s): C34.90 - Malignant neoplasm of unspecified part of unspecified bronchus or lung (5) Hypercalcemia Current Visit: Yes Status: Acute This is improvement management per primary team (6) Malignant pleural effusion Current Visit: Yes Status: Acute Based upon amount of fluid reaccumulation we will consider Pleurx catheter placement prior to discharge Subjective Principal diagnosis: Respiratory Failure Interval history: He continues to have episodes of significant shortness of breath where he feels like he cannot expectorate phlegm despite aggressive bronchopulmonary hygiene. He remains on nasal cannula O2 with excellent saturation. He is afebrile. Objective PUL Vital signs: Last Vital Signs Temp 97.8 F 03/16/19 04:23 Pulse 95 03/16/19 04:23 Resp 16 03/16/19 04:23 BP 105/72 03/16/19 04:23 Pulse Ox 100 03/16/19 04:23 General appearance: appears uncomfortable Eyes: nonicteric ENT: oropharynx moist Effort: mildly labored Auscultation: bilateral: rhonchi Cardiovascular: regular rate and rhythm Gastrointestinal: normoactive bowel sounds, soft, non-tender Integumentary: normal Musculoskeletal: no deformities normal mental status, non-focal exam mood appropriate Results - Laboratory Findings CBC and BMP: 03/16/19 07:39 03/16/19 07:39 PT/INR, D-dimer PT 15.8 Seconds (9.4-12.1) H 03/14/19 10:15 Abnormal lab findings: Abnormal lab results WBC 11.6 K/mcL (4.3-11.1) H 03/14/19 10:15 RBC 3.22 M/mcL (4.19-5.50) L 03/15/19 03:07 Hgb 9.0 g/dL (12.9-16.9) L D 03/15/19 03:07 Hct 28.3 % (37.5-50.1) L 03/15/19 03:07 MCH 27.9 pg (28.0-33.3) L 03/14/19 10:15 MCHC 31.2 g/dL (31.6-35.5) L 03/14/19 10:15 9.8 K/mcL (1.6-8.9) H 03/14/19 10:15 0.4 K/mcL (0.6-4.6) L 03/15/19 03:07 PT 15.8 Seconds (9.4-12.1) H 03/14/19 10:15 VBG pCO2 72 mmHg (41-51) H* 03/14/19 10:32 VBG HCO3 39 mEq/L (21-27) H 03/14/19 10:32 Chloride 90 mEq/L (98-107) L 03/14/19 10:15 Carbon Dioxide 34 mEq/L (23-29) H 03/15/19 03:07 0.63 mg/dL (0.70-1.30) L 03/15/19 03:07 32 (6-26) H 03/15/19 03:07 Glucose 124 mg/dL (70-105) H 03/15/19 03:07 Calcium 12.5 mg/dL (8.6-10.3) H 03/15/19 03:07 244 Units/L (34-104) H 03/14/19 10:15 125 Units/L (140-271) L 03/14/19 10:15 B-Natriuretic Peptide 127 pg/mL (Less than 100) H 03/14/19 10:15 4.2 g/dL (2.4-3.5) H 03/14/19 10:15 1.0 (1.1-2.2) L 03/14/19 10:15 PTH Intact 6.0 pg/ml (10.0-65.0) L 03/14/19 10:25 Pleural Appearance Cloudy (Clear) A 03/14/19 Unknown Vancomycin Trough 11 mcg/mL (5-10) H 03/15/19 23:25 - Microbiology Findings Microbiology Findings: Microbiology, Last 48 Hours 03/14/19 10:27 Gram Stain - Final Pleural Fluid Body Fluid Culture - Preliminary 03/14/19 10:38 Blood Culture - Preliminary Peripheral Venipuncture Culture is incubating and being continuously monitored for growth. Final report to follow. 03/14/19 10:34 Blood Culture - Preliminary Peripheral Venipuncture Culture is incubating and being continuously monitored for growth. Final report to follow. - Clinical Findings Intake & Output: Intake & Output 03/15/19 03/15/19 03/16/19 15:59 23:59 07:59 Intake Total 620 / 3220 100 / 3220 350 / 350 Output Total 450 / 450 Balance 620 / 2770 -350 / 2770 350 / 350 Weight 80 kg Consult Discharge Plan - Plan Referrals: Marilynn Carrillo MD [Primary Care Provider] -
[2019-03-16] MEDS: Budesonide/Formoterol 80/4.5 MDI IH SCH ×2 (07:26→19:58)
[2019-03-16] MEDS: Thiamine (B-1) 100 MG TABLET PO SCH (07:46)
[2019-03-16] MEDS: Folic Acid 1 MG TABLET PO SCH (07:46)
[2019-03-16] MEDS: Vitamin B Complex/Vit C/Vit E 1 EACH TABLET PO SCH (07:46)
[2019-03-16] MEDS: Levofloxacin 750 MG/150 ML 750 MG/150 ML BAG IVPB SCH (07:47)
[2019-03-16 07:55] LABS: Hematocrit 28.1 % (37.5-50.1); Hemoglobin 8.8 g/dL (12.9-16.9); Immature Granulocytes % 0.6 % (0-4); Lymphocytes # 0.4 K/mcL (0.6-4.6); Lymphocytes % 5.1 %; Mean Corpuscular HGB Conc 31.3 g/dL (31.6-35.5); Mean Corpuscular Volume 89.5 fL (83.0-100.0); Mean Platelet Volume 9.3 fL (9.4-12.4); Monocytes # 0.7 K/mcL (0.0-1.3); Monocytes % 8.6 %; Neutrophils # 6.8 K/mcL (1.6-8.9); Platelet Count 237 K/mcL (140-400); Red Blood Count 3.14 M/mcL (4.19-5.50); Red Cell Distribution Width 13.5 % (11.5-14.5); Segmented Neutrophils % 85.7 %
[2019-03-16 08:17] LABS: BUN/Creatinine Ratio 27 (6-26); Blood Urea Nitrogen 20 mg/dL (6-20); Calcium 11.2 mg/dL (8.6-10.3); Carbon Dioxide 31 mEq/L (23-29); Chloride 96 mEq/L (98-107); Glucose 111 mg/dL (70-105); Magnesium 1.7 mg/dL (1.6-2.6); Osmolality,Calculated 287 (280-300); Phosphorous 3.2 mg/dL (2.7-4.5); Potassium 3.6 mEq/L (3.5-5.1); Sodium 137 mEq/L (136-145); eGFR For Non-African Americans > 60 (> 60)
[2019-03-16] MEDS: Acetylcysteine 10% 2 ML INHSOL IH SCH ×3 (11:04→19:58)
[2019-03-16] MEDS: MethylPREDNISolone 40 MG/ML VIAL IVP SCH ×2 (11:25→22:16)
--- NOTE | 2019-03-16 13:12 | Internal Med Progress Note ---
Hospitalist Progress Note - Encounter Date of Encounter: 03/16/19 Time of Encounter: 13:10 - Subjective Interval History: I have seen and evaluated the patient at bedside. Patient reports improvement in his breathing, reports not feeling as short of breath as yesterday. denies nausea, vomiting or abdominal pain. denies chest pain. - Exam Vitals: Temp Pulse Resp BP Pulse Ox 97.3 F L 97 28 119/81 98 03/16/19 10:00 03/16/19 10:00 03/16/19 11:07 03/16/19 10:00 03/16/19 11:07 Exam: Vitals: Reviewed. General: Alert and oriented x4. In no distress Cardiovascular: RRR, normal S1 & S2, no rubs, murmurs or gallops. Lungs: Rales to auscultation b/l R>L, no wheezes or crackles. Abdomen: Soft, non-tender, no rigidity. Extremities: No edema Neurological: Normal cognition and motor skills. Rest of the physical exam is non contributory - Assessment and Plan (1) Acute on chronic respiratory failure with hypoxia and hypercapnia Current Visit: Yes Status: Acute Assessment and Plan: patient on 4 litters of O2. home O2 requirements. s/p thoracentesis with 650 mls of fluids removed. mucus plug Plan Pulm consulted, recommended to add flutter valve and also acetylcysteine possible bronchoscopy tomorrow morning NPO at midnight continue chest PT, and incentive spirometry bronchodilators Q4RT Guillermina on symbicort continue methyl-prednisolone 40mg/IV Q12HR sputum culture and urine for atypical organisms ordered, pending report discontinue vancomycin and piperacillin/tazobactam continue levofloxacin 750mg/IV daily continue O2 by nasal cannula, titrate for O2 sat >92% pleural fluids culture: pending (2) Non-small cell cancer of right lung Current Visit: Yes Status: Chronic Assessment and Plan: CT chest without contrast 02/06/2019 revealed interval progression of the primary right lung mass, with progressive metastatic disease, now identified within the skeletal structures and within the upper abdomen with bubbles of gas noted within the upper aspect of the pleural collection, 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 This is consistent with further progression of disease. Bronchoscopy 02/26/[address] Whitmore showed atypical cells suspicious for malignancy in the right mainstem bronchus, bronchus interm edius and left mainstem bronchus. Plan Hem&Onc has been consulted for continuity of care, recommendations appreciated (3) Acute exacerbation of chronic obstructive airways disease Current Visit: Yes Status: Acute Assessment and Plan: plan of care as per problem #1. (4) HCAP (healthcare-associated pneumonia) Current Visit: Yes Status: Suspected Assessment and Plan: discontinue vancomycin and piperacillin/tazobactam continue levofloxacin 750mg/PO daily. (5) Hypercalcemia Current Visit: Yes Status: Acute Assessment and Plan: Possible hypercalcemia of malignancy. 1 dose of zolendronic acid, give. calcium trending down. Hem&Onc consulted (6) Decreased appetite Current Visit: Yes Status: Chronic (7) Alcohol dependence Current Visit: No Status: Chronic Assessment and Plan: patient reports drinking 30 beers a day. on CIWA protocol. (8) Opiate dependence Current Visit: Yes Status: Chronic DVT Prophylaxis: On heparin subQ for Dvt prophylaxis - Summary of Assessment and Plan Summary of Assessment and Plan: Patient to remain in the hospital due to acute hypoxemic/hypercapnic respiratory failure. HCAP. - Time Spent with Patient Total time spent is greater than 50% in coordination of care (as documented) at patient's floor/unit and/or counseling patient: Greater than 35 minutes (40) Plan of Care Discussed with: patient (and the nurse.) Internal Medicine: Result - Labs CBC & Chem 7: 03/16/19 07:39 03/16/19 07:39 Labs: Short CBC 03/16/19 Range/Units 07:39 WBC 8.0 (4.3-11.1) K/mcL Hgb 8.8 L (12.9-16.9) g/dL Hct 28.1 L (37.5-50.1) % Plt Count 237 (140-400) K/mcL Neutrophils # 6.8 (1.6-8.9) K/mcL BMP 03/16/19 07:39 Sodium 137 Potassium 3.6 Chloride 96 L Carbon Dioxide 31 H BUN 20 Creatinine 0.73 Glucose 111 H Calcium 11.2 H - ABG Interpretation ABG results: PT/INR, D-dimer PT 15.8 Seconds (9.4-12.1) H 03/14/19 10:15 Consult Discharge Plan - Plan Referrals: Marilynn Carrillo MD [Primary Care Provider] - (7) Alcohol dependence Qualifiers: Substance use status: uncomplicated Qualified Code(s): F10.20 - Alcohol dependence, uncomplicated (8) Opiate dependence Qualifiers: Substance use status: uncomplicated Qualified Code(s): F11.20 - Opioid dependence, uncomplicated
[2019-03-16] MEDS ORDERED: Aminoglycoside Consult 1 EACH MC ONE (16:39)
[2019-03-17] MEDS: Ipratropium/Albuterol Neb 3 ML IH SCH ×5 (00:57→15:50)
[2019-03-17] MEDS: *HR* OxyCODONE Immed Rel 15 MG TABLET PO PRN ×7 (01:01→16:23)
[2019-03-17] MEDS: Acetylcysteine 10% 2 ML INHSOL IH SCH ×3 (03:39→15:50)
[2019-03-17 05:53] LABS: Hematocrit 32.1 % (37.5-50.1); Hemoglobin 9.8 g/dL (12.9-16.9); Immature Granulocytes % 0.7 % (0-4); Lymphocytes # 0.3 K/mcL (0.6-4.6); Mean Corpuscular HGB Conc 30.5 g/dL (31.6-35.5); Mean Corpuscular Hemoglobin 27.5 pg (28.0-33.3); Mean Corpuscular Volume 90.2 fL (83.0-100.0); Mean Platelet Volume 9.7 fL (9.4-12.4); Monocytes # 0.5 K/mcL (0.0-1.3); Monocytes % 8.4 %; Neutrophils # 5.1 K/mcL (1.6-8.9); Platelet Count 249 K/mcL (140-400); Red Blood Count 3.56 M/mcL (4.19-5.50); Red Cell Distribution Width 13.6 % (11.5-14.5); Segmented Neutrophils % 85.9 %
[2019-03-17] MEDS: *HR* Heparin 5,000 UNIT/ML VIAL SQ SCH ×2 (06:06→13:49)
[2019-03-17] MEDS: *HR* Morphine Sulfate SR (12 HR) 30 MG TABLET.ER PO SCH (06:07)
[2019-03-17 06:13] LABS: BUN/Creatinine Ratio 31 (6-26); Blood Urea Nitrogen 18 mg/dL (6-20); Calcium 10.4 mg/dL (8.6-10.3); Carbon Dioxide 33 mEq/L (23-29); Chloride 98 mEq/L (98-107); Glucose 119 mg/dL (70-105); Magnesium 1.9 mg/dL (1.6-2.6); Osmolality,Calculated 291 (280-300); Potassium 3.8 mEq/L (3.5-5.1); Sodium 139 mEq/L (136-145); eGFR For Non-African Americans > 60 (> 60)
[2019-03-17] MEDS: Budesonide/Formoterol 80/4.5 MDI IH SCH (07:19)
[2019-03-17] MEDS: Vitamin B Complex/Vit C/Vit E 1 EACH TABLET PO SCH (07:51)
[2019-03-17] MEDS: Folic Acid 1 MG TABLET PO SCH (07:51)
[2019-03-17] MEDS: Thiamine (B-1) 100 MG TABLET PO SCH (07:51)
[2019-03-17] MEDS: Levofloxacin 750 MG/150 ML 750 MG/150 ML BAG IVPB SCH (07:51)
[2019-03-17] MEDS ORDERED: MethylPREDNISolone 40 MG/ML VIAL IVP SCH (09:00)
[2019-03-17 10:45] VITALS: BP 133/70
--- NOTE | 2019-03-17 11:29 | Pulmonology Progress Note ---
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 Patient declined further imaging. Counseled about the goals of care patient is leaning towards being comfort care. Palliative care consultation Qualifiers: Laterality: right Lung location: unspecified part of lung Qualified Code(s): C34.91 - Malignant neoplasm of unspecified part of right bronchus or lung (2) Acute exacerbation of chronic obstructive airways disease Current Visit: Yes Status: Resolved Patient presented with acute exacerbation of COPD to continue with bronchodilators and steroids to continue at least 40 mg per oral please do not taper the steroids as patient has symptomatic relief is steroids and patient has poor prognosis. (3) Acute on chronic respiratory failure with hypoxia and hypercapnia Current Visit: Yes Status: Resolved Secondary to pneumonia and possible COPD exacerbation worsening right-sided squamous cell carcinoma use BiPAP if that gives him discomfort. (4) Pneumonia Current Visit: No Status: Suspected To continue with broad-spectrum antibiotics de-escalate according to the response. Will eventually de-escalate to Levaquin to continue for another 7 days. Qualifiers: Pneumonia type: due to methicillin-resistant Staphylococcus aureus (MRSA) Laterality: unspecified laterality Lung location: unspecified part of lung Qualified Code(s): J15.212 - Pneumonia due to Methicillin resistant Staphylococcus aureus Subjective Principal diagnosis: Respiratory Failure Interval history: Patient has advanced a squamous cell lung carcinoma of the right side now with complete occlusion of the right mainstem with right lung collapse last bronchoscopy showed that this lesion is not stentable will and also there is no role of chemotherapy. Patient still has shortness of breath but is lot better patient has some cough and sputum production patient has some on and off chest pain most on the right side. Patient had thoracentesis that gave him some relief. If he has recurrent pleural effusion he might be a candidate for Pleurx catheter. Pulmonary was consulted for the role of bronchoscopy. Objective PUL Vital signs: Last Vital Signs Temp 97.5 F L 03/17/19 10:42 Pulse 100 03/17/19 10:42 Resp 18 03/17/19 10:42 BP 133/70 03/17/19 10:42 Pulse Ox 98 03/17/19 10:42 General appearance: appears uncomfortable Effort: mildly labored Auscultation: right: wheezes, bilateral: diminished breath sounds (Basilar diminished breath sounds.) Cardiovascular: regular rate and rhythm Gastrointestinal: normoactive bowel sounds Extremities: no cyanosis, no edema Musculoskeletal: no deformities normal mental status, non-focal exam anxious Results - Laboratory Findings CBC and BMP: 03/17/19 05:01 03/17/19 05:01 PT/INR, D-dimer PT 15.8 Seconds (9.4-12.1) H 03/14/19 10:15 Abnormal lab findings: Abnormal lab results WBC 11.6 K/mcL (4.3-11.1) H 03/14/19 10:15 RBC 3.56 M/mcL (4.19-5.50) L 03/17/19 05:01 Hgb 9.8 g/dL (12.9-16.9) L 03/17/19 05:01 Hct 32.1 % (37.5-50.1) L 03/17/19 05:01 MCH 27.5 pg (28.0-33.3) L 03/17/19 05:01 MCHC 30.5 g/dL (31.6-35.5) L 03/17/19 05:01 MPV 9.3 fL (9.4-12.4) L 03/16/19 07:39 9.8 K/mcL (1.6-8.9) H 03/14/19 10:15 0.3 K/mcL (0.6-4.6) L 03/17/19 05:01 PT 15.8 Seconds (9.4-12.1) H 03/14/19 10:15 VBG pCO2 72 mmHg (41-51) H* 03/14/19 10:32 VBG HCO3 39 mEq/L (21-27) H 03/14/19 10:32 Chloride 96 mEq/L (98-107) L 03/16/19 07:39 Carbon Dioxide 33 mEq/L (23-29) H 03/17/19 05:01 0.59 mg/dL (0.70-1.30) L 03/17/19 05:01 31 (6-26) H 03/17/19 05:01 Glucose 119 mg/dL (70-105) H 03/17/19 05:01 Calcium 10.4 mg/dL (8.6-10.3) H 03/17/19 05:01 244 Units/L (34-104) H 03/14/19 10:15 125 Units/L (140-271) L 03/14/19 10:15 B-Natriuretic Peptide 127 pg/mL (Less than 100) H 03/14/19 10:15 4.2 g/dL (2.4-3.5) H 03/14/19 10:15 1.0 (1.1-2.2) L 03/14/19 10:15 PTH Intact 6.0 pg/ml (10.0-65.0) L 03/14/19 10:25 Pleural Appearance Cloudy (Clear) A 03/14/19 Unknown Vancomycin Trough 11 mcg/mL (5-10) H 03/15/19 23:25 - Microbiology Findings Microbiology Findings: Microbiology, Last 48 Hours 03/14/19 10:27 Gram Stain - Final Pleural Fluid Body Fluid Culture - Preliminary - Clinical Findings Intake & Output: Intake & Output 03/16/19 03/17/19 03/17/19 23:59 07:59 15:59 Intake Total 350 / 900 550 / 900 Output Total 525 / 525 Balance -175 / 375 550 / 375 Weight 82.1 kg Consult Discharge Plan - Plan Referrals: Marilynn Carrillo MD [Primary Care Provider] - Prescriptions: LORazepam Oral Conc [Ativan Oral Conc] 1 mg PO Q6HR PRN 4 Days #15 mls PRN Reason: Anxiety Ipratropium/Albuterol Neb [Duoneb] 3 ml IH Q4HR PRN 4 Days #20 vial.neb PRN Reason: wheezing/shortness of breath Levofloxacin [Levaquin] 750 mg PO DAILY 7 Days #7 tablet Morphine Sulfate SR (12 HR) [MS Contin] 1 tab PO Q8HR 4 Days #12 tab Morphine Sulfate SR (12 HR) [MS Contin] 1 tab PO Q12HR 4 Days #8 tab GuaiFENesin ER [Mucinex] 600 mg PO BID 30 Days #60 tbbp.12hr MORPHINE SUL Oral CONC [Roxanol Oral Conc] 10 mg PO Q4H PRN 4 Days #15 oral.syg PRN Reason: Dyspnea OxyCODONE Immed Rel [Roxicodone 30 MG] 30 mg PO Q2H PRN 4 Days #40 tab PRN Reason: Breakthrough Pain Sennosides [Senokot] 8.6 mg PO BID 4 Days #8 tablet
--- NOTE | 2019-03-17 13:07 | Discharge Summary ---
Orders not resulted at time of discharge: Pending orders 03/14/19 09:55 ECG 12 lead ECG [ECG] Stat 03/14/19 10:26 Cytology [PTH] Routine 03/14/19 10:27 Culture,Body Fluid [RM] Routine Gram Stain [RM] Routine 03/14/19 10:38 Culture,Blood [BC] Stat 03/14/19 12:05 Parathormone Related Peptide Stat 03/14/19 15:03 Culture,Sputum with Gram Stain [RM] Routine Legionella Antigen [RM] Routine S. Pneumoniae Antigen [RM] Routine 03/15/19 07:38 MRSA Surveillance Screen [MOLMIC] Stat 03/17/19 12:51 Procalcitonin Routine 03/18/19 04:00 Procalcitonin ONCE Date of Encounter: 03/17/19 Time of Encounter: 13:03 - Discharge Diagnosis (1) Acute on chronic respiratory failure with hypoxia and hypercapnia Priority: Primary Status: Resolved (2) Non-small cell cancer of right lung Priority: Secondary Status: Chronic (3) Acute exacerbation of chronic obstructive airways disease Priority: Secondary Status: Resolved (4) HCAP (healthcare-associated pneumonia) Priority: Secondary Status: Suspected (5) Hypercalcemia Priority: Secondary Status: Resolved (6) Decreased appetite Priority: Secondary Status: Chronic (7) Alcohol dependence Priority: Secondary Status: Chronic Qualifiers: Substance use status: uncomplicated Qualified Code(s): F10.20 - Alcohol dependence, uncomplicated (8) Opiate dependence Priority: Secondary Status: Chronic Qualifiers: Substance use status: uncomplicated Qualified Code(s): F11.20 - Opioid dependence, uncomplicated Hospital course: Mr. Higgins is a 53 year old male male with a past medical history of hypertension, HLD, COPD with continuous 4 L home oxygen dependence, and chemoradiation for non-small cell lung cancer who presented to the ED secondary to difficulty breathing for the past [address] Jean at [facility] and completed Pembrolizumab 200 mg IV every 3 weeks from 12/17/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 This is consistent with further progression of disease. Bronchoscopy 02/26/[address] Whitmore showed atypical cells suspicious for malignancy in the right mainstem bronchus, bronchus intermedius and left mainstem bronchus. There is evidence of endobronchial recurrence. In the ED, labs revealed hypercalcemia 16.6, leukocytosis 11.6, VBG PCO2 72, lactic acid level 1.8 --> 1.3, and chest x-ray revealed complete opacification of the right lung. IR was consulted for a thoracentesis. Patient underwent thoracentesis with 650 mls of fluids removed. Patien admitted to the hospital due to hypercapnic/hypoxemic respiratory failure and possible HCAP. patient was managed with broad spectrum IV antibiotics, IV steroids and bronchodilators. Pulmonology consulted, recommended to discharge the patient on a high dose steroid. per pulmonology due to patient's cancer location repeating a bronchoscopy would be of little benefit. Palliative care was consulted: Patient is being discharged with [facility]. Patient hemodynamically stable to be discharge. - Time Spent with Patient Total time spent providing and/or coordinating discharge services: Time spent: Greater than 30 minutes (35) - Discharge Medications Prescriptions: New Levofloxacin [Levaquin] 750 mg PO DAILY 7 Days #7 tablet GuaiFENesin ER [Mucinex] 600 mg PO BID 30 Days #60 tbbp.12hr LORazepam Oral Conc [Ativan Oral Conc] 1 mg PO Q6HR PRN 4 Days #15 mls PRN Reason: Anxiety Ipratropium/Albuterol Neb [Duoneb] 3 ml IH Q4HR PRN 4 Days #20 vial.neb PRN Reason: wheezing/shortness of breath Morphine Sulfate SR (12 HR) [MS Contin] 1 tab PO Q8HR 4 Days #12 tab MORPHINE SUL Oral CONC [Roxanol Oral Conc] 10 mg PO Q4H PRN 4 Days #15 oral.syg PRN Reason: Dyspnea OxyCODONE Immed Rel [Roxicodone 30 MG] 30 mg PO Q2H PRN 4 Days #40 tab PRN Reason: Breakthrough Pain Sennosides [Senokot] 8.6 mg PO BID 4 Days #8 tablet Morphine Sulfate SR (12 HR) [MS Contin] 1 tab PO Q12HR 4 Days #8 tab Continued Ranitidine HCl [Heartburn Relief] 150 mg PO BID Pravastatin Sodium [Pravachol] 40 mg PO DAILY OxyCODONE Immed Rel [Roxicodone 30 MG] 30 mg PO Q2H PRN PRN Reason: Breakthrough Pain Losartan Potassium [Cozaar] 50 mg PO QPM Budesonide/Formoterol 80/4.5 [Symbicort 80/4.5] 1 puff IH BID #1 hfa.aer.ad Dronabinol [Marinol] 10 mg PO BID 30 Days #60 capsule Ipratropium/Albuterol Neb [Duoneb] 3 ml IH Q4HR PRN #42 vial.neb PRN Reason: Shortness Of Breath Lactobacillus Acidophilus [Acidophilus] 1 tab PO TID Morphine Sulfate [Arymo ER] 30 mg PO Q12H Albuterol Sulfate [Ventolin Hfa] 2 puff IH Q6H PRN #1 aerosol PRN Reason: Shortness Of Breath Discontinued predniSONE [PredniSONE] 10 mg PO DAILY Home Medications: Pravastatin Sodium [Pravachol] 40 mg PO DAILY 12/19/16 [History] Ranitidine HCl [Heartburn Relief] 150 mg PO BID 12/19/16 [History] OxyCODONE Immed Rel [Roxicodone 30 MG] 30 mg PO Q2H PRN 11/21/17 [History] Losartan Potassium [Cozaar] 50 mg PO QPM 12/11/17 [History] Budesonide/Formoterol 80/4.5 [Symbicort 80/4.5] 1 puff IH BID #1 hfa.aer.ad 12/12/18 [Rx] Dronabinol [Marinol] 10 mg PO BID 30 Days #60 capsule 01/30/19 [Rx] Ipratropium/Albuterol Neb [Duoneb] 3 ml IH Q4HR PRN #42 vial.neb 02/20/19 [Rx] Lactobacillus Acidophilus [Acidophilus] 1 tab PO TID 02/26/19 [History] Morphine Sulfate [Arymo ER] 30 mg PO Q12H 02/26/19 [History] Albuterol Sulfate [Ventolin Hfa] 2 puff IH Q6H PRN #1 aerosol 03/03/19 [Rx] GuaiFENesin ER [Mucinex] 600 mg PO BID 30 Days #60 tbbp.12hr 03/17/19 [Rx] Ipratropium/Albuterol Neb [Duoneb] 3 ml IH Q4HR PRN 4 Days #20 vial.neb 03/17/19 [Rx] LORazepam Oral Conc [Ativan Oral Conc] 1 mg PO Q6HR PRN 4 Days #15 mls 03/17/19 [Rx] Levofloxacin [Levaquin] 750 mg PO DAILY 7 Days #7 tablet 03/17/19 [Rx] MORPHINE SUL Oral CONC [Roxanol Oral Conc] 10 mg PO Q4H PRN 4 Days #15 oral.syg 03/17/19 [Rx] Morphine Sulfate SR (12 HR) [MS Contin] 1 tab PO Q12HR 4 Days #8 tab 03/17/19 [Rx] Morphine Sulfate SR (12 HR) [MS Contin] 1 tab PO Q8HR 4 Days #12 tab 03/17/19 [Rx] OxyCODONE Immed Rel [Roxicodone 30 MG] 30 mg PO Q2H PRN 4 Days #40 tab 03/17/19 [Rx] Sennosides [Senokot] 8.6 mg PO BID 4 Days #8 tablet 03/17/19 [Rx] Allergies/Adverse Reactions: Allergy/AdvReac Type Severity Reaction Status Date / Time No Known Allergies Allergy Verified 03/14/19 10:56 Date of admission: 03/15/19 13:56 Primary care physician: Marilynn Carrillo MD Consults: 03/14/19 10:12 Consult to Interventional Radiology [CONS] Stat Consulting Provider: Radiology Interventional Cols Reason for Consult: R pleural effusion Call Completed: Yes 03/14/19 11:51 Consult to Oncology Hematology [CONS] Routine Consulting Provider: Emy Pelayo Reason for Consult: Elevated CA/ Known Non small cell Lung CA Call Completed: Yes 03/14/19 14:36 Consult to Nutrition [CONS] Stat Comment: Consulting Provider: NUTRITION Reason for Dietary Consult: PO Supplementation 03/14/19 14:40 Consult to Occupational Therapy [CONS] Routine Comment: Evaluate, develop and implement POC Reason for Consult: Weakness Does patient have active BEDREST order?: No Is patient medically & hemodynamically stable?: Yes Patient assessed for mobility or mobilized this visit?: No Consult to Physical Therapy [CONS] Routine Comment: Evaluate, develop and implement POC Reason for Consult: Weakness Does patient have active BEDREST order?: No Is patient medically & hemodynamically stable?: Yes Patient assessed for mobility or mobilized this visit?: No 03/14/19 16:27 Consult to Office Messenger [CONS] Routine Reason for SW Consult: alcoholism 03/15/19 10:25 Consult to Pulmonology [CONS] Routine Consulting Provider: Pulm Crit Care & Sleep Sanjana Reason for Consult: right lung collapse Call Completed: Yes 03/17/19 07:50 Consult to Nurse Navigator [CONS] Routine Comment: pn, copd 03/17/19 12:46 Consult to Palliative Care [CONS] Routine Comment: Consulting Provider: Palliative Care [place] Reason for Consult: lung cancer Call Completed: Yes - Constitutional Vitals: Temp Pulse Resp BP Pulse Ox 97.5 F L 100 20 133/70 98 03/17/19 10:42 03/17/19 10:42 03/17/19 11:54 03/17/19 10:42 03/17/19 11:54 General appearance: Present: cooperative, mild distress, A&O X 3, pleasant, answers questions appropriately Exam: Vitals: Reviewed. General: Alert and oriented x4. In no distress Cardiovascular: RRR, normal S1 & S2, no rubs, murmurs or gallops. Lungs: Rales to auscultation b/l R>L, no wheezes or crackles. Abdomen: Soft, non-tender, no rigidity. Extremities: No edema Neurological: Normal cognition and motor skills. Rest of the physical exam is non contributory - Patient Status Disposition: Home, Self-Care Condition: Critical Functional capacity at discharge: uses cane/walker Overall status at discharge: patient is back to baseline - Discharge Instructions Follow Up With: Marilynn Carrillo MD [Primary Care Provider] - - Diet and Activity Activity: resume usual activities as tolerated, wear oxygen at all times (4 litters ) Diet: advance to your usual diet
--- NOTE | 2019-03-17 14:34 | Electrocardiograph Report ---
[address] [address] Test Date: 2019-03-14 Pat Name: Kristopher Higgins Department: EXAM21 Room: 2A14 Gender: M [employer]: : 1965 Requested By: Keith Weir Order Number: [id number] Reading MD: Lencho Junior Measurements Intervals [place] Rate: 140 P: -5 [place]: 122 QRS: 70 QRSD: 178 T: 42 QT: 350 QTc: 533 Interpretive Statements Sinus tachycardia Artifact Recommend repeat ECG Electronically Signed On 03-17-2019 14:33:26 EDT by Lencho Junior
--- NOTE | 2019-03-17 14:58 | Physician Discharge Referral ---
Home Health/Hosp Referral Info Transfer to: Home Health - Diagnosis (1) Acute on chronic respiratory failure with hypoxia and hypercapnia Priority: Primary Status: Resolved (2) Non-small cell cancer of right lung Priority: Secondary Status: Chronic (3) Acute exacerbation of chronic obstructive airways disease Priority: Secondary Status: Resolved (4) HCAP (healthcare-associated pneumonia) Priority: Secondary Status: Suspected (5) Hypercalcemia Priority: Secondary Status: Resolved (6) Decreased appetite Priority: Secondary Status: Chronic (7) Alcohol dependence Priority: Secondary Status: Chronic (8) Opiate dependence Priority: Secondary Status: Chronic - Respiratory Orders Oxygen / L per min (3-4 litters) Smoking Cessation: Smoking cessation has been advised. For more information, call the [employer] Quit Line at 4-554-NPDC-NOW. - Diet/Nutrition Diet/Nutrition Orders: Regular - Activity Activity Orders: Ambulate - Services Needed Following services are medically necessary services: Nursing, Home Health Aide - Transfer Medications Prescriptions: LORazepam Oral Conc [Ativan Oral Conc] 1 mg PO Q6HR PRN 4 Days #15 mls PRN Reason: Anxiety Ipratropium/Albuterol Neb [Duoneb] 3 ml IH Q4HR PRN 4 Days #20 vial.neb PRN Reason: wheezing/shortness of breath Levofloxacin [Levaquin] 750 mg PO DAILY 7 Days #7 tablet Morphine Sulfate SR (12 HR) [MS Contin] 1 tab PO Q8HR 4 Days #12 tab Morphine Sulfate SR (12 HR) [MS Contin] 1 tab PO Q12HR 4 Days #8 tab GuaiFENesin ER [Mucinex] 600 mg PO BID 30 Days #60 tbbp.12hr MORPHINE SUL Oral CONC [Roxanol Oral Conc] 10 mg PO Q4H PRN 4 Days #15 oral.syg PRN Reason: Dyspnea OxyCODONE Immed Rel [Roxicodone 30 MG] 30 mg PO Q2H PRN 4 Days #40 tab PRN Reason: Breakthrough Pain Sennosides [Senokot] 8.6 mg PO BID 4 Days #8 tablet Home Medications: Pravastatin Sodium [Pravachol] 40 mg PO DAILY 12/19/16 [History] Ranitidine HCl [Heartburn Relief] 150 mg PO BID 12/19/16 [History] OxyCODONE Immed Rel [Roxicodone 30 MG] 30 mg PO Q2H PRN 11/21/17 [History] Losartan Potassium [Cozaar] 50 mg PO QPM 12/11/17 [History] Budesonide/Formoterol 80/4.5 [Symbicort 80/4.5] 1 puff IH BID #1 hfa.aer.ad 12/12/18 [Rx] Dronabinol [Marinol] 10 mg PO BID 30 Days #60 capsule 01/30/19 [Rx] Ipratropium/Albuterol Neb [Duoneb] 3 ml IH Q4HR PRN #42 vial.neb 02/20/19 [Rx] Lactobacillus Acidophilus [Acidophilus] 1 tab PO TID 02/26/19 [History] Morphine Sulfate [Arymo ER] 30 mg PO Q12H 02/26/19 [History] Albuterol Sulfate [Ventolin Hfa] 2 puff IH Q6H PRN #1 aerosol 03/03/19 [Rx] GuaiFENesin ER [Mucinex] 600 mg PO BID 30 Days #60 tbbp.12hr 03/17/19 [Rx] Ipratropium/Albuterol Neb [Duoneb] 3 ml IH Q4HR PRN 4 Days #20 vial.neb 03/17/19 [Rx] LORazepam Oral Conc [Ativan Oral Conc] 1 mg PO Q6HR PRN 4 Days #15 mls 03/17/19 [Rx] Levofloxacin [Levaquin] 750 mg PO DAILY 7 Days #7 tablet 03/17/19 [Rx] MORPHINE SUL Oral CONC [Roxanol Oral Conc] 10 mg PO Q4H PRN 4 Days #15 oral.syg 03/17/19 [Rx] Morphine Sulfate SR (12 HR) [MS Contin] 1 tab PO Q12HR 4 Days #8 tab 03/17/19 [Rx] Morphine Sulfate SR (12 HR) [MS Contin] 1 tab PO Q8HR 4 Days #12 tab 03/17/19 [Rx] OxyCODONE Immed Rel [Roxicodone 30 MG] 30 mg PO Q2H PRN 4 Days #40 tab 03/17/19 [Rx] Sennosides [Senokot] 8.6 mg PO BID 4 Days #8 tablet 03/17/19 [Rx] Allergies/Adverse Reactions: Allergy/AdvReac Type Severity Reaction Status Date / Time No Known Allergies Allergy Verified 03/14/19 10:56 Certification: Further, I certify that my clinical findings support that this patient is home bound (i.e. absences from home require considerable and taxing effort and are for medical reasons or sabianist services or infrequently or short duration when for other reasons) because: Homebound Reason: Patient requires assistance of a person or device to safely leave home Attestation: My signature below is to certify that this patient is under my care and that I, or nurse practitioner, or a physician's real estate administrative assistant working with me, has a [id number] encounter with this patient.
--- NOTE | 2019-03-17 15:10 | Palliative - Consult Note ---
Date of Encounter: 03/17/19 Time of Encounter: 14:00 - Assessment and Plan (1) Cancer associated pain Current Visit: Yes Status: Acute Assessment and plan: Patient has been on MS Contin 30mg every 12 hours, but requiring 30mg Oxycodone every 2 hours for breakthrough pain, and still somewhat uncomfortable. Will increase his MS Contin to 60mg every 12 hours, and discussed with him, that the goal would be to decrease the amount of breakthrough medication he has to take. Will D/W hospice nurse that medicaitions will need monitored closely. (2) Palliative care encounter Current Visit: Yes Status: Acute (3) Advanced care planning/counseling discussion Current Visit: Yes Status: Acute Assessment and plan: Additional 30 min discussion for advanced care planning including discussion and designation of healthcare power of energy attorney. Patient decided to only do this document and not a living will. Discussed code status at length as well, and code status transitioned to DNR-Comfort care. State form signed by patient. Patient and family provided copies of documents as well as placed in medical record. (4) Goals of care, counseling/discussion Current Visit: Yes Status: Acute Assessment and plan: Discussed goals of care with pt and his significant other, Lory Davidson. They have been together approx 17 years. He is well aware regarding his prognosis, and asks that I help him get home and have nursing care so he can stay at home. Discussed hospice care at length, and pt/Lory agreeable. Referral called to [facility] - as well as needs for bipap/bed/walker/BSC/shower bench. Patient already has home o2/neb through [facility]. Prescriptions completed for MS Contin,, Roxanol, Lorazepam, Senokot, Oxycodone, Duonebs, and faxed to pharmacy. Patient will be discharged home later this afternoon. (5) Adenocarcinoma of left lung Current Visit: No Status: Chronic (6) Acute exacerbation of chronic obstructive airways disease Current Visit: Yes Status: Resolved (7) History of alcohol abuse Current Visit: No Status: Chronic Palliative-CN HPI - Data of Consult Requesting Physician: Yoav Leon MD Primary Care Provider: Marilynn Carrillo MD - Consult Narrative History of present illness: Mr. Higgins is a 53 year old male who was admitted from the oncology office for increased shortness of breath and hypercalcemia. He has history of metastatic non-small cell lung cancer. Originally diagnosed in 2016 and had chemoradiation, but now with recurrence. He completed Pemvorlizumab in December, and has progressive disease. CT performed in 02/14 demonstrated progression of disease, and Recent bronchoscopy 02/26 demonstrated endobronchial lesions (right and left mainstem), and right sided opacification. Thoracentesis was performed shortly after admission with 650ml fluid removed. Also received Zometa for his hypercalcemia. His respiratory status has not improved unfortunately, and pulmonology here did not have any intervention to offer. Upon my visit, pt is up in chair, family at bedside. He is very dypsneic with conversation. Asking me if I can help him get home, states "My days are numbered, we are at the end of the rope, and I want to go home and smoke and have a cold beer". He is c/o back/shoulder pain that varies in intensity, currently a 7/10. States he has been running out of his pain medication at home, as he takes extra he has been so uncomfortable. Non productive cough, no hemoptysis. Denies nausea/vomiting/constipation/diarrhea. CC: Yoav Leon MD - Time Spent with Patient Time: Total time spent is greater than 50% in coordination of care (as documented) at patient's floor/unit and/or counseling patient: Time with patient: 75 minutes Past Med Surg Social Fam HX - Past Medical History Medical history: cancer, GERD, hyperlipidemia, hypertension Additional medical history: back pain, lung CA Psychiatric history: no psych history - Past Surgical History Surgical History: no surgical history Additional surgical history: Bronchoscopy 12/19/2016, 02/26/19; port placement; - Social History Smoking Status: Former smoker Smokeless Tobacco Status: No Alcohol use: heavy Drug use: marijuana - Family History Father Living Status: Age at : 66 Cause of : GA Hx Family Cardiac Disorders: Yes (CAD) Mother Living Status: Age at : 71 Hx Family Neurologic Disorders: Yes (Li Gehrig's disease) Brother Living Status: Age at : 55 Cause of : Lung cancer Hx Family Cancer: Yes (Lung) Medications and Allergies Pravastatin Sodium [Pravachol] 40 mg PO DAILY 12/19/16 [History] Ranitidine HCl [Heartburn Relief] 150 mg PO BID 12/19/16 [History] OxyCODONE Immed Rel [Roxicodone 30 MG] 30 mg PO Q2H PRN 11/21/17 [History] Losartan Potassium [Cozaar] 50 mg PO QPM 12/11/17 [History] Budesonide/Formoterol 80/4.5 [Symbicort 80/4.5] 1 puff IH BID #1 hfa.aer.ad 12/12/18 [Rx] Dronabinol [Marinol] 10 mg PO BID 30 Days #60 capsule 01/30/19 [Rx] Ipratropium/Albuterol Neb [Duoneb] 3 ml IH Q4HR PRN #42 vial.neb 02/20/19 [Rx] Lactobacillus Acidophilus [Acidophilus] 1 tab PO TID 02/26/19 [History] Morphine Sulfate [Arymo ER] 30 mg PO Q12H 02/26/19 [History] Albuterol Sulfate [Ventolin Hfa] 2 puff IH Q6H PRN #1 aerosol 03/03/19 [Rx] GuaiFENesin ER [Mucinex] 600 mg PO BID 30 Days #60 tbbp.12hr 03/17/19 [Rx] Ipratropium/Albuterol Neb [Duoneb] 3 ml IH Q4HR PRN 4 Days #20 vial.neb 03/17/19 [Rx] LORazepam Oral Conc [Ativan Oral Conc] 1 mg PO Q6HR PRN 4 Days #15 mls 03/17/19 [Rx] Levofloxacin [Levaquin] 750 mg PO DAILY 7 Days #7 tablet 03/17/19 [Rx] MORPHINE SUL Oral CONC [Roxanol Oral Conc] 10 mg PO Q4H PRN 4 Days #15 oral.syg 03/17/19 [Rx] Morphine Sulfate SR (12 HR) [MS Contin] 1 tab PO Q12HR 4 Days #8 tab 03/17/19 [Rx] Morphine Sulfate SR (12 HR) [MS Contin] 1 tab PO Q8HR 4 Days #12 tab 03/17/19 [Rx] OxyCODONE Immed Rel [Roxicodone 30 MG] 30 mg PO Q2H PRN 4 Days #40 tab 03/17/19 [Rx] Sennosides [Senokot] 8.6 mg PO BID 4 Days #8 tablet 03/17/19 [Rx] Allergy/AdvReac Type Severity Reaction Status Date / Time No Known Allergies Allergy Verified 03/14/19 10:56 All systems: reviewed and no additional remarkable complaints except as stated (back/shoulder pain, weakness, poor appetite, shortness of breath) Palliative Care-Exam - Constitutional Vitals: Temp Pulse Resp BP Pulse Ox 97.5 F L 100 20 133/70 98 03/17/19 10:42 03/17/19 10:42 03/17/19 11:54 03/17/19 10:42 03/17/19 11:54 General appearance: Present: mild distress - Head Head Exam: Present: normal inspection, normocephalic - Eye Eye exam: Present: normal appearance - Respiratory Additional comments: Breath sounds greatly diminished on right. - Cardiovascular Cardiovascular exam: Present: +S1, +S2 - GI/Abdominal Exam GI/Abdominal exam: Present: normal bowel sounds, soft - Extremities Exam Extremities exam: Present: normal capillary refill, normal inspection - Neurological Exam Neurological exam: Present: alert, oriented X3, strengths equal and symetr throughout - Psychiatric Psychiatric exam: Present: normal affect, normal mood - Skin Skin exam: Present: dry, pallor, warm Internal Medicine - CN: Reslt - Labs CBC & Chem 7: 03/17/19 05:01 03/17/19 05:01 Labs: Short CBC 03/17/19 Range/Units 05:01 WBC 6.0 (4.3-11.1) K/mcL Hgb 9.8 L (12.9-16.9) g/dL Hct 32.1 L (37.5-50.1) % Plt Count 249 (140-400) K/mcL Neutrophils # 5.1 (1.6-8.9) K/mcL BMP 03/17/19 05:01 Sodium 139 Potassium 3.8 Chloride 98 Carbon Dioxide 33 H BUN 18 Creatinine 0.59 L Glucose 119 H Calcium 10.4 H - ABG Interpretation ABG results: PT/INR, D-dimer PT 15.8 Seconds (9.4-12.1) H 03/14/19 10:15 - Impressions Impressions Chest X-Ray 03/17/19 06:00 IMPRESSION: 1. Stable complete opacification of the right hemithorax. 2. Increasing left basilar atelectasis or pneumonia with grossly stable left pleural effusion. D/ / Daren Alicea MD / Daren Alicea MD Interpreting Provider: Daren Alicea MD Consult Discharge Plan - Plan Referrals: Marilynn Carrillo MD [Primary Care Provider] - Prescriptions: LORazepam Oral Conc [Ativan Oral Conc] 1 mg PO Q6HR PRN 4 Days #15 mls PRN Reason: Anxiety Ipratropium/Albuterol Neb [Duoneb] 3 ml IH Q4HR PRN 4 Days #20 vial.neb PRN Reason: wheezing/shortness of breath Levofloxacin [Levaquin] 750 mg PO DAILY 7 Days #7 tablet Morphine Sulfate SR (12 HR) [MS Contin] 1 tab PO Q8HR 4 Days #12 tab Morphine Sulfate SR (12 HR) [MS Contin] 1 tab PO Q12HR 4 Days #8 tab GuaiFENesin ER [Mucinex] 600 mg PO BID 30 Days #60 tbbp.12hr MORPHINE SUL Oral CONC [Roxanol Oral Conc] 10 mg PO Q4H PRN 4 Days #15 oral.syg PRN Reason: Dyspnea OxyCODONE Immed Rel [Roxicodone 30 MG] 30 mg PO Q2H PRN 4 Days #40 tab PRN Reason: Breakthrough Pain Sennosides [Senokot] 8.6 mg PO BID 4 Days #8 tablet Palliative Quality Palliative Quality: Screen for Code Status: Yes, Screen for Goals of Care: Yes, Screen for Pain: Yes, If Pain Regimen Started, Initiate Bowel Regimen: Yes, Screen for Nausea/Vomitting: Yes Code Status: 03/14/19 14:36 Resuscitation Status: Active [RES] Routine Comment: Resuscitation Status: Full Code
== END 2019-03-17 16:40 | disposition home or self-care (01) | DRG 189 ==
LOC: EMEROOARM 09:49 → 2ANU 09:49 → SUATTDRO 03-15 13:56
PROVIDERS: ADMIT Internal Medicine Nephrology; ATTEND Internal Medicine